=== PATIENT | male | born 1945 | race Caucasian/White ===

== ENCOUNTER 2022-04-06 11:58 | Inpatient (IN) ==
[2022-04-06] MEDS ORDERED: ALBUTEROL SULFATE 2.5 MG/3 ML NEBULIZER ONE (12:05)
[2022-04-06] MEDS ORDERED: IPRATROPIUM/ALBUTEROL 3 ML AMPUL.NEB NEB ONE (12:10)
--- NOTE | 2022-04-06 12:18 | Emergency Department Note ---
SOB HPI General Chief Complaint: Shortness of Breath/Dyspnea Stated Complaint: SOB Time Seen by Provider: 04/06/22 12:09 Mode of arrival: ambulatory History of Present Illness HPI Narrative: 77-year-old male with history of hyperlipidemia, hypertension, T2DM presents to the ER with shortness of breath and saturation 65% on room air. Patient is not officially diagnosed with COPD, but states he has a "touch" of COPD. Related Data Home Medications Medication Instructions Recorded Confirmed aspirin 81 mg tablet,delayed 81 mg PO QDAY 10/02/14 05/15/19 release multivitamin 1 tab PO QDAY 10/02/14 05/15/19 atorvastatin 40 mg tablet 40 mg PO QDAY 11/06/18 05/15/19 cholecalciferol (vitamin D3) 25 1,000 unit PO QWEEK 11/06/18 05/15/19 mcg (1,000 unit) capsule lisinopril 30 mg tablet 30 mg PO QDAY 11/06/18 05/15/19 metformin 1,000 mg tablet,extended 1,000 mg PO BID 05/15/19 05/15/19 release 24hr Previous Rx's Medication Instructions Recorded atenolol 50 mg tablet 75 mg PO QDAY 90 days #135 tabs 11/02/16 glipizide 2.5 mg tablet, extended 2.5 mg PO BID #180 tabs 03/07/17 release 24 hr Allergies Allergy/AdvReac Type Severity Reaction Status Date / Time Iodinated Contrast Media Allergy Severe Unknown Verified 05/15/19 09:14 [Iodinated Contrast Media - IV Dye] Review of Systems ROS ROS Narrative: Narrative: PFSH Narrative Patient History Narrative: Narrative: Medical/Surgical/Family History All Active Problems (Updated 04/06/22 @ 13:01 by Marie Hagen PA-C) Community acquired pneumonia (Acute) Hemorrhagic stroke (Acute) Hypertensive urgency (Acute) Hyperparathyroidism due to renal insufficiency (Chronic) Hypertensive renal disease with renal failure (Chronic) History of biopsy (Acute) Impaired renal function (Acute) Secondary hyperparathyroidism of renal origin (Chronic) Sebaceous cyst (Acute) Renal cancer (Acute) History of renal cell carcinoma (Chronic) Pyogenic granuloma (Acute) Peripheral neuropathy (Acute) Overweight (Acute) Lung nodule (Acute) Birthmark (Acute) residential current use of aspirin (Acute) Hypertensive renal disease (Acute) Hypertension, essential (Acute) Hyperlipidemia (Acute) Encounter for therapeutic drug monitoring (Acute) DM (diabetes mellitus), type 2, uncontrolled (Acute) DM type 2 (diabetes mellitus, type 2) (Chronic) [place] (Acute) Chronic kidney disease (CKD), stage III (moderate) (Chronic) Chest pain (Acute) Medical History (Updated 04/06/22 @ 13:01 by Marie Hagen PA-C) Birthmark Nevi, unspecified Chest pain Chronic kidney disease (CKD), stage III (moderate) [place] DM (diabetes mellitus), type 2, uncontrolled 01/14/2013 DM type 2 (diabetes mellitus, type 2) no recent A1C as he has not followed with his PCP Advised to keep regular follow up to ensure adequate control of DM will start him on glipzide 2.5 xl educated the need to check blood glucose, if more than 130 call, will increase the glipizide dose Encounter for therapeutic drug monitoring Encounter for other and unspecified procedures and aftercare; encounter for therapeutic drug monitoring History of renal cell carcinoma 01/14/2013 Hyperlipidemia Hyperparathyroidism due to renal insufficiency Hypertension, essential Hypertensive renal disease BP near goal, states home BP are good ct lisinopril start exercising again will follow Hypertensive renal disease with renal failure Impaired renal function Unspec. D/O results; impaired renal funct. residential current use of aspirin Lung nodule Overweight Peripheral neuropathy Pyogenic granuloma Renal cancer Renal malignancy surveillance renal US at next visit UA with no hematuria Sebaceous cyst Secondary hyperparathyroidism of renal origin PTH at 71, Vitamin D 50 at goal calcium and phos are at goal as well pt has stopped taking calcitriol or OTC vitamin D Will monitor for now Surgical History (Updated 05/15/19 @ 10:13 by Annie Aguirre MD) H/O left nephrectomy History of biopsy 06/20/2011 - Skin biopsy. Skin, right and mid-upper back - epidermal inclusion cyst Family History Grandmother Type 2 diabetes mellitus Maternal Unknown Malignant neoplasm Social History Alcohol Intake Frequency: a few times a month Exam Narrative Narrative: Narrative: Course Course Course Narrative: 77-year-old male with history of T2DM, hypertension, hyperlipidemia presents with URI with acute hypoxic respiratory failure and saturation 65% on room air. Patient states that he started feeling exertional shortness of breath last week. He is also felt little rundown. No other significant symptoms. He does use albuterol inhaler, but is not officially diagnosed with COPD. Denies history of CAD. Denies chest pain. Reevaluation(s) Reevaluation #1: Obtain basic labs, chest x-ray Reevaluation #2: VBG with a lactic acid of 3 and a pH of 7.31 Creatinine 1.6 which is baseline Chest x-ray shows bilateral lower lobe infiltrates, right greater than left Vital Signs Vital signs: Vital Signs Pulse Rate 79 04/06/22 12:00 Respiratory Rate 26 H 04/06/22 12:00 Pulse Oximetry (%) 65 L 04/06/22 12:00 Oxygen Delivery Method 04/06/22 12:00 Pulse Rate 63 04/06/22 14:16 Respiratory Rate 19 04/06/22 14:16 Blood Pressure 141/79 04/06/22 14:16 Pulse Oximetry (%) 92 04/06/22 14:16 Oxygen Delivery Method 04/06/22 14:16 Oxygen Flow Rate (L/min) 8 04/06/22 14:16 MDM MDM Narrative Medical decision making narrative: Community-acquired pneumonia Hypoxic respiratory failure Patient will need admission. I reached out to the hospitalist and the patient has been accepted. Lab Data Result diagrams: 04/06/22 12:11 Labs: Lab Results 04/06/22 04/06/22 04/06/22 Range/Units 12:11 12:17 12:18 WBC 7.9 (4.5-11.0) K/mcL RBC 4.52 L (4.63-6.08) M/mcL Hgb 13.3 L (13.7-17.5) g/dL Hct 43.1 (40.1-51.0) % POC Hct 44.0 (41-55) MCV 95.4 (80.0-100.0) fL MCH 29.4 (26.0-34.0) pg MCHC 30.9 L (31.0-36.0) g/dL RDW 15.4 H (11.5-14.5) % Plt Count 230 (140-440) K/mcL MPV 11.3 (8.8-12.5) fL Immature Gran % (Auto) 0.4 (0.0-0.5) % Neut % (Auto) 74.8 (38.0-78.0) % Lymph % (Auto) 16.7 (15.5-49.0) % [place] % (Auto) 6.2 (1.0-12.0) % Eos % (Auto) 1.4 (0.0-7.0) % Baso % (Auto) 0.5 (0.0-2.0) % Lymph # (Auto) 1.32 L (1.50-4.80) K/mcL [place] # (Auto) 0.49 (0.10-0.90) K/mcL Eos # (Auto) 0.11 (0.00-0.70) K/mcL Baso # (Auto) 0.04 (0.00-0.30) K/mcL Immature Gran # 0.03 (0.00-0.05) K/mcl Absolute Neutrophils 5.92 (1.80-8.00) K/mcL POC VBG pH 7.31 L (7.32-7.42) POC VBG pCO2 at Temp 38.6 L (41-51) POC VBG pO2 31 (25-40) POC VBG HCO3 19.6 L (24-28) POC VBG Total CO2 21.0 L (25-29) POC Venous O2 Sat 54.0 (40-70) POC VBG Base Excess -7.0 L (-2-2) VBG Lactic Acid 3.0 H (0.5-2) POC Sodium 142 (133-145) POC Potassium 4.5 (3.3-5.1) POC Chloride 111 H (96-108) POC Total CO2 21.0 L (22-30) POC BUN 26 H (6-20) POC Creatinine 1.6 H (0.6-1.2) POC Glucose 214 H (70-105) POC WB Ioniz Calcium 1.22 (1.16-1.32) POC Troponin I (0.00-0.08) 04/06/22 Range/Units 12:21 WBC (4.5-11.0) K/mcL RBC (4.63-6.08) M/mcL Hgb (13.7-17.5) g/dL Hct (40.1-51.0) % POC Hct (41-55) MCV (80.0-100.0) fL MCH (26.0-34.0) pg MCHC (31.0-36.0) g/dL RDW (11.5-14.5) % Plt Count (140-440) K/mcL MPV (8.8-12.5) fL Immature Gran % (Auto) (0.0-0.5) % Neut % (Auto) (38.0-78.0) % Lymph % (Auto) (15.5-49.0) % [place] % (Auto) (1.0-12.0) % Eos % (Auto) (0.0-7.0) % Baso % (Auto) (0.0-2.0) % Lymph # (Auto) (1.50-4.80) K/mcL [place] # (Auto) (0.10-0.90) K/mcL Eos # (Auto) (0.00-0.70) K/mcL Baso # (Auto) (0.00-0.30) K/mcL Immature Gran # (0.00-0.05) K/mcl Absolute Neutrophils (1.80-8.00) K/mcL POC VBG pH (7.32-7.42) POC VBG pCO2 at Temp (41-51) POC VBG pO2 (25-40) POC VBG HCO3 (24-28) POC VBG Total CO2 (25-29) POC Venous O2 Sat (40-70) POC VBG Base Excess (-2-2) VBG Lactic Acid (0.5-2) POC Sodium (133-145) POC Potassium (3.3-5.1) POC Chloride (96-108) POC Total CO2 (22-30) POC BUN (6-20) POC Creatinine (0.6-1.2) POC Glucose (70-105) POC WB Ioniz Calcium (1.16-1.32) POC Troponin I < 0.02 (0.00-0.08) ED POC Tests ED POC Tests: SHARIFA - Influenza A Negative SHARIFA - Influenza B Negative SHARIFA - SARS Antigen Negative Discharge Plan Patient/Caregiver Discharge Instructions Pt seen by GROUTMAN/PA only: Yes Clinical Impression: Community acquired pneumonia Patient Disposition: Xfer As Inpt ([facility]) Follow up with: Deni,Rachelle L, BOWL ATTENDANT [Primary Care Provider] - Prescriptions: No Action atenolol 50 mg tablet 75 mg PO QDAY 90 Days Qty: 135 1RF glipizide 2.5 mg tablet extended release 24hr 2.5 mg PO BID Qty: 180 0RF aspirin 81 mg tablet,delayed release (DR/EC) 81 mg PO QDAY multivitamin 1 tab PO QDAY atorvastatin 40 mg tablet 40 mg PO QDAY cholecalciferol (vitamin D3) 1,000 unit capsule 1,000 unit PO QWEEK lisinopril 30 mg tablet 30 mg PO QDAY metformin 1,000 mg tablet extended release 24hr 1,000 mg PO BID
[2022-04-06] MEDS ORDERED: cefTRIAXone 1 GM VIAL IV ONE (12:20)
[2022-04-06 12:21] LABS: POC Calcium, Ionized 1.22 (1.16-1.32); POC Creatinine 1.6 (0.6-1.2); POC Potassium 4.5 (3.3-5.1)
[2022-04-06] MEDS ORDERED: AZITHROMYCIN 250 MG TABLET PO ONE (12:32)
[2022-04-06 13:21] LABS: Basophils # (Auto) 0.04 K/mcL (0.00-0.30); Basophils % (Auto) 0.5 % (0.0-2.0); Eosinophils # (Auto) 0.11 K/mcL (0.00-0.70); Eosinophils % (Auto) 1.4 % (0.0-7.0); Hematocrit 43.1 % (40.1-51.0); Hemoglobin 13.3 g/dL (13.7-17.5); Lymphocytes # (Auto) 1.32 K/mcL (1.50-4.80); Lymphocytes % (Auto) 16.7 % (15.5-49.0); Mean Cell Volume 95.4 fL (80.0-100.0); Mean Corpuscular HGB Conc 30.9 g/dL (31.0-36.0); Mean Platelet Volume 11.3 fL (8.8-12.5); Monocytes # (Auto) 0.49 K/mcL (0.10-0.90); Monocytes % (Auto) 6.2 % (1.0-12.0); Neutrophils % (Auto) 74.8 % (38.0-78.0); Platelet Count 230 K/mcL (140-440); RBC 4.52 M/mcL (4.63-6.08); Red Cell Distribution Width 15.4 % (11.5-14.5); WBC 7.9 K/mcL (4.5-11.0)
--- NOTE | 2022-04-06 13:43 | XRay Report ---
CLINICAL INFORMATION: Hypoxia COMPARISON: 09/15/2011 TECHNIQUE: Portable FINDINGS: The heart size, mediastinum and pulmonary vessels are unremarkable. Moderate patchy bibasilar infiltrates and small effusions appreciated.. There are no effusions. The bones and soft tissues are within normal limits. IMPRESSION: Moderate patchy bibasilar infiltrates and small effusions. Interpreted and Authenticated by: Ton Hardwick 04/06/22
--- NOTE | 2022-04-06 14:41 | Internal Med History&Physical ---
HPI History of Present Illness Patient information: Note initiated : 04/06/22 at 2:32 pm Service Date, if different from initiated Date: [] Patient: Franki Baxter a 77 y/o M admitted on for Shortness of breath. Chief Complaint: [] History of present illness: Mr. Baxter is a 77 year old M Presents the ED with increasing shortness of breath. Patient was found to have oxygen saturation of 65% on room air when he arrived. Patient said his primary doctor says he has a touch of COVID. Patient has a history of smoking but quit in the mid 90s. Patient states his shortness of breath for a long time especially with exertion but usually when he sits down he gets better. However the past week he said his dyspnea on exertion has been increasing and not improving quickly with rest especially today he can hardly walk across to his living room. Patient sleeps in a bed as opposed to recliner and does not report any increased shortness of breath or sleeping. Denies any weight gain or edema. Denies any chest pain. Denies any body aches or flulike symptoms. Patient denies any cough. Denies any fevers says he has had some chills in the morning but unimpressive. He does say his brother has been sick recently, the only sick contact has had. Patient has not not had the flu vaccine and does not sound like he is having COVID booster. He did have COVID done in [place] last year and was in the hospital for 4 days. In the ED he was placed on oxygen mask at 8 L. Renal function appears to be near baseline. Does have a lactate of 3 and a pH of 7.31. Chest x-ray with bilateral pneumonia. Rapid flu and COVID negative but the Cepheid test for COVID is pending. Review of Systems: Pertinent positives as above. Denies headache/fever//nausea/vomiting/chest or abdominal pain/diarrhea. Remaining 10 point review of system reviewed negative PFSH PFSH All Active Problems (Updated 04/06/22 @ 13:01 by Marie Hagen PA-C) Community acquired pneumonia (Acute) Hemorrhagic stroke (Acute) Hypertensive urgency (Acute) Hyperparathyroidism due to renal insufficiency (Chronic) Hypertensive renal disease with renal failure (Chronic) History of biopsy (Acute) Impaired renal function (Acute) Secondary hyperparathyroidism of renal origin (Chronic) Sebaceous cyst (Acute) Renal cancer (Acute) History of renal cell carcinoma (Chronic) Pyogenic granuloma (Acute) Peripheral neuropathy (Acute) Overweight (Acute) Lung nodule (Acute) Birthmark (Acute) jail current use of aspirin (Acute) Hypertensive renal disease (Acute) Hypertension, essential (Acute) Hyperlipidemia (Acute) Encounter for therapeutic drug monitoring (Acute) DM (diabetes mellitus), type 2, uncontrolled (Acute) DM type 2 (diabetes mellitus, type 2) (Chronic) [place] (Acute) Chronic kidney disease (CKD), stage III (moderate) (Chronic) Chest pain (Acute) Medical History (Updated 04/06/22 @ 13:01 by Marie Hagen PA-C) Birthmark Nevi, unspecified Chest pain Chronic kidney disease (CKD), stage III (moderate) [place] DM (diabetes mellitus), type 2, uncontrolled 01/14/2013 DM type 2 (diabetes mellitus, type 2) no recent A1C as he has not followed with his PCP Advised to keep regular follow up to ensure adequate control of DM will start him on glipzide 2.5 xl educated the need to check blood glucose, if more than 130 call, will increase the glipizide dose Encounter for therapeutic drug monitoring Encounter for other and unspecified procedures and aftercare; encounter for therapeutic drug monitoring History of renal cell carcinoma 01/14/2013 Hyperlipidemia Hyperparathyroidism due to renal insufficiency Hypertension, essential Hypertensive renal disease BP near goal, states home BP are good ct lisinopril start exercising again will follow Hypertensive renal disease with renal failure Impaired renal function Unspec. D/O results; impaired renal funct. watermaster current use of aspirin Lung nodule Overweight Peripheral neuropathy Pyogenic granuloma Renal cancer Renal malignancy surveillance renal US at next visit UA with no hematuria Sebaceous cyst Secondary hyperparathyroidism of renal origin PTH at 71, Vitamin D 50 at goal calcium and phos are at goal as well pt has stopped taking calcitriol or OTC vitamin D Will monitor for now Surgical History (Updated 05/15/19 @ 10:13 by Annie Aguirre MD) H/O left nephrectomy History of biopsy 06/20/2011 - Skin biopsy. Skin, right and mid-upper back - epidermal inclusion cyst Family History Grandmother Type 2 diabetes mellitus Maternal Unknown Malignant neoplasm Social History (Updated 05/15/19 @ 10:13 by Annie Aguirre MD) alcohol intake frequency: a few times a month MEDS/ALLERGIES Home Medications and Allergies Home Medications Medication Instructions Recorded Confirmed Type aspirin 81 mg tablet,delayed 81 mg PO QDAY 10/02/14 04/06/22 History release multivitamin 1 tab PO QDAY 10/02/14 04/06/22 History atorvastatin 40 mg tablet 40 mg PO QDAY 11/06/18 04/06/22 History cholecalciferol (vitamin D3) 25 5,000 unit PO QWEEK 11/06/18 04/06/22 History mcg (1,000 unit) capsule metformin 1,000 mg tablet,extended 1,000 mg PO BID 05/15/19 04/06/22 History release 24hr albuterol sulfate 90 mcg/actuation 2 puff inhalation Q4HP PRN dyspnea 04/06/22 04/06/22 History aerosol inhaler amlodipine 5 mg tablet 1 tab PO QDAY 04/06/22 04/06/22 History atenolol 50 mg tablet 100 mg PO QDAY 04/06/22 04/06/22 History glipizide 10 mg tablet, extended 2 tab PO QDAY 04/06/22 04/06/22 History release 24 hr lisinopril 40 mg tablet 1 tab PO QDAY 04/06/22 04/06/22 History omeprazole 20 mg capsule,delayed 20 mg PO QDAY 04/06/22 04/06/22 History release pioglitazone 30 mg tablet 1 tab PO QAM 04/06/22 04/06/22 History Allergies Allergy/AdvReac Type Severity Reaction Status Date / Time Iodinated Contrast Media Allergy Severe Unknown Verified 05/15/19 09:14 [Iodinated Contrast Media - IV Dye] EXAM Constitutional Vitals: Pulse Resp BP Pulse Ox O2 Del Method O2 Flow Rate 62 14 155/93 92 8 04/06/22 14:31 04/06/22 14:31 04/06/22 14:31 04/06/22 14:31 04/06/22 14:16 04/06/22 14:16 Exam: General: Alert, Awake, No acute Distress, obese Eyes/N/T: EOMI, PERRL, Head/Neck: neck supple, normocephalic atraumatic CV: RRR, No murmurs, normal s1/s2 Pulm: Diminished at bases b/l, no wheezing/rhonchi/rales Abd: soft, nontender, +BS x4 Ext: no clubbing/cyanosis/edema Neuro: Alert, no focal deficits, moves all extremities, CN 2-12 grossly intact, symmetrical strength b/l upper/lower, sensations intact b/l upper/lower Skin: warm/dry DATA Data Completed and Pending Labs: Labs from last 24 hours 04/06/22 04/06/22 04/06/22 14:22 14:22 12:21 WBC RBC Hgb Hct POC Hct MCV MCH MCHC RDW Plt Count MPV Immature Gran % (Auto) Neut % (Auto) Lymph % (Auto) [place] % (Auto) Eos % (Auto) Baso % (Auto) Lymph # (Auto) [place] # (Auto) Eos # (Auto) Baso # (Auto) Immature Gran # Absolute Neutrophils POC VBG pH POC VBG pCO2 at Temp POC VBG pO2 POC VBG HCO3 POC VBG Total CO2 POC Venous O2 Sat POC VBG Base Excess VBG Lactic Acid POC Sodium POC Potassium POC Chloride POC Total CO2 POC BUN POC Creatinine POC Glucose POC WB Ioniz Calcium C-Reactive Protein Pending NT-Pro-B Natriuret Pep Pending Procalcitonin Pending POC Troponin I < 0.02 04/06/22 04/06/22 04/06/22 12:18 12:17 12:11 WBC 7.9 RBC 4.52 L Hgb 13.3 L Hct 43.1 POC Hct 44.0 MCV 95.4 MCH 29.4 MCHC 30.9 L RDW 15.4 H Plt Count 230 MPV 11.3 Immature Gran % (Auto) 0.4 Neut % (Auto) 74.8 Lymph % (Auto) 16.7 [place] % (Auto) 6.2 Eos % (Auto) 1.4 Baso % (Auto) 0.5 Lymph # (Auto) 1.32 L [place] # (Auto) 0.49 Eos # (Auto) 0.11 Baso # (Auto) 0.04 Immature Gran # 0.03 Absolute Neutrophils 5.92 POC VBG pH 7.31 L POC VBG pCO2 at Temp 38.6 L POC VBG pO2 31 POC VBG HCO3 19.6 L POC VBG Total CO2 21.0 L POC Venous O2 Sat 54.0 POC VBG Base Excess -7.0 L VBG Lactic Acid 3.0 H POC Sodium 142 POC Potassium 4.5 POC Chloride 111 H POC Total CO2 21.0 L POC BUN 26 H POC Creatinine 1.6 H POC Glucose 214 H POC WB Ioniz Calcium 1.22 C-Reactive Protein NT-Pro-B Natriuret Pep Procalcitonin POC Troponin I A/P Narrative A/P Narrative: A: *Acute hypoxic respiratory failure: *Pneumonia w/ARDS vs cardiac r/o: -Pt had covid while in [place] last year, hospitalized for 4-days *Lactic acidosis: *Probable COPD based on imaging and smoking history *DM w/neuropathy: -A1c 9.1 *CKD IIIb: *HTN/HLD: *GERD: *h/o hemoarrhagic CVA (2019): *Obesity: BMI 35 P: -O2 supp, wean as able -ABG -IV abx, pending BC/SC -pending quad/rvp -check crp/pct/bnp, if elevated then echo -f/u lactate -IS/Acapella, prn nebs, RT -monitor renal fxn, i/o, trend cbc/cmp -Continue home asa/statin -cont home ccb/bb/acei -ssi, hold metformin for now -Home medication reconciliation -PT/OT -CM for placement needs -ppx: Lovenox / home ppi Time Spent With Patient Time: Total time spent is greater than 50% in coordination of care (as documented) at patient's floor/unit and/or counseling patient: Total time spent with greater than 50% in coordination of care (as documented) at patient's floor/unit and/or counseling patient:: Greater than 70 minutes
[2022-04-06 15:43] LABS: Albumin 3.9 gm/dL (3.2-5.2); Blood Urea Nitrogen 24 mg/dL (8-23); Calcium 9.2 mg/dL (8.6-10.4); Carbon Dioxide 18 mmol/L (22-30); Chloride 106 mmol/L (96-108); Glomerular Filtration Rate 53; Glucose 173 mg/dL (70-105); Phosphorous 2.9 mg/dL (2.5-4.5)
[2022-04-06 15:52] LABS: ALT/SGPT 18 U/L (<40); AST/SGOT 15 U/L (<40); Alkaline Phosphatase 74 U/L (39-117); Bilirubin,Direct < 0.2 mg/dL (0-0.3); Bilirubin,Total 0.3 mg/dL (0.1-1.0); Globulin 3.3 gm/dL (2.2-3.7)
[2022-04-06] MEDS ORDERED: ACETAMINOPHEN 325 MG TABLET PO PRN (17:23)
[2022-04-06] MEDS ORDERED: AZITHROMYCIN 500 MG in DEXTROSE 5% IN WATER 250 ML IV SCH (17:23)
[2022-04-06] MEDS ORDERED: POLYETHYLENE GLYCOL 3350 17 GM PACKET PO PRN (17:23)
[2022-04-06] MEDS ORDERED: POTASSIUM CHLORIDE 40 MEQ in DEXTROSE 5% IN WATER 500 ML IV PRN (17:23)
[2022-04-06] MEDS ORDERED: MAGNESIUM SULFATE 2 GM/50 ML BAG IV PRN (17:23)
[2022-04-06] MEDS ORDERED: IPRATROPIUM/ALBUTEROL 3 ML AMPUL.NEB NEB PRN (17:23)
[2022-04-06] MEDS ORDERED: ONDANSETRON 4 MG/2 ML VIAL IV PRN (17:23)
[2022-04-06] MEDS ORDERED: POTASSIUM CHLORIDE 20 MEQ TABLET PO PRN ×2 (17:23)
[2022-04-06] MEDS ORDERED: SENNOSIDES 1 TABLET PO PRN (17:23)
[2022-04-06] MEDS ORDERED: cefTRIAXone 1 GM in DEXTROSE 5% IN WATER 50 ML IV SCH (17:23)
[2022-04-06] MEDS ORDERED: FUROSEMIDE 40 MG/4 ML VIAL IV SCH (17:50)
[2022-04-06] MEDS: 0.9 % SODIUM CHLORIDE 10 ML SYRINGE IV SCH ×2 (19:05→21:36)
--- NOTE | 2022-04-07 00:53 | Internal Med Progress Note ---
SUBJECTIVE Subjective Patient information: Note initiated : 04/07/22 at 12:48 am Service Date, if different from initiated Date: [] Patient: Franki Baxter 77 y/o M admitted on 04/06/22 for Shortness of breath. Chief Complaint: [] Interval history: History of present illness: Mr. Baxter is a 77 year old M Presents the ED with increasing shortness of breath. Patient was found to have oxygen saturation of 65% on room air when he arrived. Patient said his primary doctor says he has a touch of COVID. Patient has a history of smoking but quit in the mid . Patient states his shortness of breath for a long time especially with exertion but usually when he sits down he gets better. However the past week he said his dyspnea on exertion has been increasing and not improving quickly with rest especially today he can hardly walk across to his living room. Patient sleeps in a bed as opposed to recliner and does not report any increased shortness of breath or sleeping. Denies any weight gain or edema. Denies any chest pain. Denies any body aches or flulike symptoms. Patient denies any cough. Denies any fevers says he has had some chills in the morning but unimpressive. He does say his brother has been sick recently, the only sick contact has had. Patient has not not had the flu vaccine and does not sound like he is having COVID booster. He did have COVID done in [place] last year and was in the hospital for 4 days. In the ED he was placed on oxygen mask at 8 L. Renal function appears to be near baseline. Does have a lactate of 3 and a pH of 7.31. Chest x-ray with bilateral pneumonia. Rapid flu and COVID negative but the Cepheid test for COVID is pending. 04/07 Was on Vapotherm overnight. Now on 6 L high flow nasal cannula. Patient has a mild cough today, productive. Says shortness of breath at present is improving. Echocardiogram pending. Renal function no change. Review of Systems: denies headache/fever/chills/nausea/vomiting/chest or abdominal pain/diarrhea. Otherwise see above. Constitutional Vitals: Vital Signs Temp Pulse Resp BP Pulse Ox O2 Del Method O2 Flow Rate 98.1 F 61 20 102/49 98 35 04/07/22 00:02 04/07/22 00:02 04/07/22 00:02 04/07/22 00:02 04/07/22 00:02 04/07/22 00:02 04/07/22 00:02 Period Temp Pulse Resp BP Sys/Cedillo Pulse Ox O2 Del Method O2 Flow Rate Last 24 Hr 97.5 F-98.1 F 61-79 9-26 102-191/49-107 65-99 Heated High Flow Nasal Ca-Room Air 8-35 Intake and Output 04/06/22 04/06/22 04/07/22 11:59 19:59 03:59 Intake Total 480 Output Total 825 Balance -345 Weight 112.264 kg 113.035 kg Patient Weight 04/07/22 03:59 Weight 113.035 kg Intake & Output: Intake & Output 04/06/22 04/06/22 04/07/22 11:59 19:59 03:59 Intake Total 480 Output Total 825 Balance -345 Weight 112.264 kg 113.035 kg Intake: Oral 480 Output: Void Amount 825 Other: Urine Appearance Clear Urine Color Pale Exam: General: Alert, Awake, No acute Distress, obese Eyes/N/T: EOMI, Head/Neck: neck supple, CV: RRR, No murmurs, Pulm: Diminished BS b/l, mild rales b/l, no wheezing Abd: soft, nontender, +BS x4 Ext: no clubbing/cyanosis, trace b/l LE edema Neuro: Alert, no focal deficits, moves all extremities, Skin: warm/dry OBJ DATA Labs CBC & Chem 7: 04/07/22 05:55 04/07/22 05:55 Labs: Abnormal Lab Results 04/06/22 04/06/22 04/06/22 15:13 14:22 14:09 RBC Hgb MCHC RDW Lymph # (Auto) POC pH 7.32 L POC pO2 63 L POC HCO3 20.5 L POC ABG Base Excess -6.0 L POC VBG pH POC VBG pCO2 at Temp POC VBG HCO3 POC VBG Total CO2 POC VBG Base Excess VBG Lactic Acid Hgb O2 Saturation 90.0 L POC Chloride Carbon Dioxide 18 L POC Total CO2 22.0 L POC BUN BUN 24 H Creatinine 1.3 H POC Creatinine Glucose 173 H POC Glucose NT-Pro-B Natriuret Pep 1224.0 H 04/06/22 04/06/22 04/06/22 12:18 12:17 12:11 RBC 4.52 L Hgb 13.3 L MCHC 30.9 L RDW 15.4 H Lymph # (Auto) 1.32 L POC pH POC pO2 POC HCO3 POC ABG Base Excess POC VBG pH 7.31 L POC VBG pCO2 at Temp 38.6 L POC VBG HCO3 19.6 L POC VBG Total CO2 21.0 L POC VBG Base Excess -7.0 L VBG Lactic Acid 3.0 H Hgb O2 Saturation POC Chloride 111 H Carbon Dioxide POC Total CO2 21.0 L POC BUN 26 H BUN Creatinine POC Creatinine 1.6 H Glucose POC Glucose 214 H NT-Pro-B Natriuret Pep Meds: Medications Acetaminophen (Acetaminophen 325 Mg Tablet) 650 mg PO Q6HP PRN; Protocol PRN Reason: Per Pain Protocol/Fever > 101 Albuterol/Ipratropium (Ipratropium/Albuterol 3 Ml Ampul.Neb) 3 ml NEB Q4HP PRN PRN Reason: Shortness Of Breath Amlodipine Besylate (Amlodipine 5 Mg Tablet) 5 mg PO QDAY [facility] Aspirin (Aspirin 81 Mg Tab.Chew) 81 mg PO QDAY [facility] Atenolol (Atenolol 50 Mg Tablet) 100 mg PO QDAY [facility] Atorvastatin Calcium (Atorvastatin 40 Mg Tablet) 40 mg PO QDAY [facility] Ceftriaxone Sodium (Ceftriaxone 1 Gm Vial) 1 gm IV Q24H [facility] Enoxaparin Sodium (Enoxaparin 40 Mg/0.4 Ml Syringe) 40 mg SQ DAILY [facility] Potassium Chloride 40 meq/ (Dextrose) 520 mls @ 130 mls/hr IV UD PRN PRN Reason: Potassium < 3 Magnesium Sulfate (Magnesium Sulfate) 2 gm in 50 mls @ 50 mls/hr IV UD PRN PRN Reason: Magnesium </= 1.6 Azithromycin 500 mg/ Dextrose 250 mls @ 250 mls/hr IV Q24H [facility]; Protocol Stop: 04/08/22 09:59 Lisinopril (Lisinopril 20 Mg Tablet) 40 mg PO QDAY [facility] Omeprazole (Omeprazole 20 Mg Capsule) 20 mg PO QAMAC [facility] Ondansetron HCl (Ondansetron 4 Mg/2 Ml Vial) 4 mg IV Q4HP PRN PRN Reason: Nausea And Vomiting Polyethylene Glycol (Polyethylene Glycol 3350 17 Gm Packet) 17 gm PO DAILYP PRN PRN Reason: Constipation Potassium Chloride (Potassium Chloride 20 Meq Tablet) 40 meq PO UD PRN PRN Reason: Potssium is 3-3.5 Potassium Chloride (Potassium Chloride 20 Meq Tablet) 40 meq PO UD PRN PRN Reason: Potassium < 3 Senna (Sennosides 1 Tablet) 2 tab PO DAILYP PRN PRN Reason: Constipation Sodium Chloride (0.9 % Sodium Chloride 10 Ml Syringe) 10 ml IV Q8 [facility] Last Admin: 04/06/22 21:36 Dose: Not Given A/P Narrative A/P Narrative: A: *Acute hypoxic respiratory failure: 2/2 -was on vapotherm o/n now on 6L HFNC *Pneumonia w/ARDS +/- Cardiac component: -Pt had covid while in [place] last year, hospitalized for 4-days -pct/crp low, afebrile. 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 *CKD IIIb: *HTN/HLD: *GERD: *h/o hemoarrhagic CVA (2019): *Obesity: BMI 35 P: -O2 supp, wean as able -IV abx, pending BC/SC -echo pending -trial IV lasix -IS/Acapella, prn nebs, RT -monitor renal fxn, i/o, trend cbc/cmp -Continue home asa/statin -cont home ccb/bb/acei -ssi, hold metformin for now -PT/OT -CM for placement needs -ppx: Lovenox / home ppi Time Spent With Patient Time: Total time spent is greater than 50% in coordination of care (as documented) at patient's floor/unit and/or counseling patient: Total time spent with greater than 50% in coordination of care (as documented) at patient's floor/unit and/or counseling patient:: 35 - 50 minutes QUALITY VTE Deep Vein Thrombosis/Pulmonary Embolism Present on Admission: No
[2022-04-07] MEDS: 0.9 % SODIUM CHLORIDE 10 ML SYRINGE IV SCH ×3 (05:43→20:05)
[2022-04-07 06:52] LABS: Basophils # (Auto) 0.04 K/mcL (0.00-0.30); Basophils % (Auto) 0.6 % (0.0-2.0); Eosinophils # (Auto) 0.18 K/mcL (0.00-0.70); Eosinophils % (Auto) 2.8 % (0.0-7.0); Hematocrit 40.1 % (40.1-51.0); Hemoglobin 12.2 g/dL (13.7-17.5); Lymphocytes # (Auto) 1.49 K/mcL (1.50-4.80); Lymphocytes % (Auto) 22.8 % (15.5-49.0); Mean Cell Volume 96.4 fL (80.0-100.0); Mean Corpuscular HGB Conc 30.4 g/dL (31.0-36.0); Mean Platelet Volume 11.1 fL (8.8-12.5); Monocytes # (Auto) 0.58 K/mcL (0.10-0.90); Monocytes % (Auto) 8.9 % (1.0-12.0); Neutrophils % (Auto) 64.6 % (38.0-78.0); Platelet Count 180 K/mcL (140-440); RBC 4.16 M/mcL (4.63-6.08); Red Cell Distribution Width 15.2 % (11.5-14.5); WBC 6.5 K/mcL (4.5-11.0)
[2022-04-07 07:13] LABS: ALT/SGPT 15 U/L (<40); AST/SGOT 15 U/L (<40); Albumin 3.6 gm/dL (3.2-5.2); Albumin/Globulin Ratio 1.1 (1.0-2.3); Alkaline Phosphatase 68 U/L (39-117); Bilirubin,Direct < 0.2 mg/dL (0-0.3); Bilirubin,Total 0.3 mg/dL (0.1-1.0); Blood Urea Nitrogen 25 mg/dL (8-23); Calcium 9.1 mg/dL (8.6-10.4); Carbon Dioxide 24 mmol/L (22-30); Chloride 107 mmol/L (96-108); Globulin 3.2 gm/dL (2.2-3.7); Glomerular Filtration Rate 48; Glucose 145 mg/dL (70-105); Lactate Dehydrogenase 244 U/L (135-225); Phosphorous 3.8 mg/dL (2.5-4.5); Triglycerides 175 mg/dL (<150); Uric Acid 6.2 mg/dL (2.5-8.0)
[2022-04-07] MEDS: OMEPRAZOLE 20 MG CAPSULE PO SCH (07:23)
[2022-04-07] MEDS: ATORVASTATIN 40 MG TABLET PO SCH (08:37)
[2022-04-07] MEDS: ASPIRIN 81 MG TAB.CHEW PO SCH (08:37)
[2022-04-07] MEDS: ENOXAPARIN 40 MG/0.4 ML SYRINGE SQ SCH (08:37)
[2022-04-07] MEDS: ATENOLOL 50 MG TABLET PO SCH (08:38)
[2022-04-07] MEDS: cefTRIAXone 1 GM VIAL IV SCH (08:38)
[2022-04-07] MEDS: amLODIPine 5 MG TABLET PO SCH (08:38)
[2022-04-07] MEDS: LISINOPRIL 20 MG TABLET PO SCH (08:38)
[2022-04-07] MEDS ORDERED: HYDROCHLOROTHIAZIDE 12.5 MG CAPSULE PO ONE (08:43)
[2022-04-07] MEDS ORDERED: FUROSEMIDE 40 MG/4 ML VIAL IV ONE (08:43)
[2022-04-07] MEDS ORDERED: DEXTROSE 50% 50 ML VIAL IV PRN (08:58)
[2022-04-07] MEDS ORDERED: DEXTROSE 31 GM ORAL.SUSP PO PRN (08:58)
[2022-04-07] MEDS ORDERED: AZITHROMYCIN 250 MG TABLET PO SCH (09:00)
[2022-04-07] MEDS: AZITHROMYCIN 500 MG in DEXTROSE 5% IN WATER 250 ML IV SCH (09:19)
[2022-04-07] MEDS: INSULIN LISPRO 1 UNIT/0.01 ML UNIT SQ SCH ×3 (11:38→20:04)
[2022-04-08] MEDS: 0.9 % SODIUM CHLORIDE 10 ML SYRINGE IV SCH ×3 (05:46→20:49)
[2022-04-08 07:18] LABS: Blood Urea Nitrogen 29 mg/dL (8-23); Calcium 9.8 mg/dL (8.6-10.4); Carbon Dioxide 25 mmol/L (22-30); Chloride 104 mmol/L (96-108); Glomerular Filtration Rate 53; Glucose 153 mg/dL (70-105)
[2022-04-08] MEDS: INSULIN LISPRO 1 UNIT/0.01 ML UNIT SQ SCH ×5 (08:19→22:47)
[2022-04-08] MEDS: ASPIRIN 81 MG TAB.CHEW PO SCH (08:19)
[2022-04-08] MEDS: LISINOPRIL 20 MG TABLET PO SCH (08:19)
[2022-04-08] MEDS: amLODIPine 5 MG TABLET PO SCH (08:19)
[2022-04-08] MEDS: OMEPRAZOLE 20 MG CAPSULE PO SCH (08:20)
[2022-04-08] MEDS: ATENOLOL 50 MG TABLET PO SCH ×2 (08:20→09:34)
[2022-04-08] MEDS: ATORVASTATIN 40 MG TABLET PO SCH (08:20)
--- NOTE | 2022-04-08 08:48 | Internal Med Progress Note ---
SUBJECTIVE Subjective Patient information: Note initiated : 04/08/22 at 8:38 am Service Date, if different from initiated Date: [] Patient: Franki Baxter 77 y/o M admitted on 04/06/22 for Shortness of breath. Chief Complaint: [] Interval history: History of present illness: Mr. Baxter is a 77 year old M Presents the ED with increasing shortness of breath. Patient was found to have oxygen saturation of 65% on room air when he arrived. Patient said his primary doctor says he has a touch of COVID. Patient has a history of smoking but quit in the mid . Patient states his shortness of breath for a long time especially with exertion but usually when he sits down he gets better. However the past week he said his dyspnea on exertion has been increasing and not improving quickly with rest especially today he can hardly walk across to his living room. Patient sleeps in a bed as opposed to recliner and does not report any increased shortness of breath or sleeping. Denies any weight gain or edema. Denies any chest pain. Denies any body aches or flulike symptoms. Patient denies any cough. Denies any fevers says he has had some chills in the morning but unimpressive. He does say his brother has been sick recently, the only sick contact has had. Patient has not not had the flu vaccine and does not sound like he is having COVID booster. He did have COVID done in [place] last year and was in the hospital for 4 days. In the ED he was placed on oxygen mask at 8 L. Renal function appears to be near baseline. Does have a lactate of 3 and a pH of 7.31. Chest x-ray with bilateral pneumonia. Rapid flu and COVID negative but the Cepheid test for COVID is pending. 04/07 Was on Vapotherm overnight. Now on 6 L high flow nasal cannula. Patient has a mild cough today, productive. Says shortness of breath at present is improving. Echocardiogram pending. Renal function no change. 04/08 Patient slept fairly well last night. Patient says he is shortness of breath is continued to improve. Is a very mild occasional cough. He is on 4 L nasal cannula although with up moving around exertion he still will desat with that. CT chest pending. Atenolol decreased for bradycardia. Review of Systems: denies headache/fever/chills/nausea/vomiting/chest or abdominal pain/diarrhea. Otherwise see above. Constitutional Vitals: Vital Signs Temp Pulse Resp BP Pulse Ox O2 Del Method O2 Flow Rate 96.8 F L 59 L 22 133/79 96 4 04/08/22 08:01 04/08/22 08:01 04/08/22 08:01 04/08/22 08:01 04/08/22 08:01 04/08/22 07:26 04/08/22 07:26 Period Temp Pulse Resp BP Sys/Cedillo Pulse Ox O2 Del Method O2 Flow Rate Last 24 Hr 96.8 F-98.4 F 50-75 10-25 97-133/46-101 87-100 High Flow Nasal Cannula-Nasal Cannula 4-6 Intake and Output 04/07/22 04/08/22 04/08/22 19:59 03:59 11:59 Intake Total 1180 Output Total 980 500 300 Balance 200 -500 -300 Weight 111.13 kg Intake & Output: Intake & Output 04/07/22 04/08/22 04/08/22 19:59 03:59 11:59 Intake Total 1180 Output Total 980 500 300 Balance 200 -500 -300 Weight 111.13 kg Intake: Oral 1180 Output: Void Amount 980 500 300 Other: Meal Dinner Percent of Meal Consumed 50% Feeding Ability Independent Urine Appearance Clear Clear Clear Urine Color Bright Yellow Bright Yellow Bright Yellow Exam: General: Alert, Awake, No acute Distress, obese Eyes/N/T: EOMI, Head/Neck: neck supple, CV: RRR, No murmurs, Pulm: mild subtle rales b/l, no wheezing Abd: soft, nontender, +BS x4 Ext: no clubbing/cyanosis, trace b/l LE edema Neuro: Alert, no focal deficits, moves all extremities, Skin: warm/dry OBJ DATA Labs CBC & Chem 7: 04/07/22 05:55 04/08/22 06:06 Labs: Abnormal Lab Results 04/08/22 04/07/22 04/07/22 06:06 05:55 05:55 RBC 4.16 L Hgb 12.2 L MCHC 30.4 L RDW 15.2 H Lymph # (Auto) 1.49 L POC pH POC pO2 POC HCO3 POC ABG Base Excess POC VBG pH POC VBG pCO2 at Temp POC VBG HCO3 POC VBG Total CO2 POC VBG Base Excess VBG Lactic Acid Hgb O2 Saturation POC Chloride Carbon Dioxide POC Total CO2 Anion Gap 7.0 L POC BUN BUN 29 H 25 H Creatinine 1.3 H 1.4 H POC Creatinine Glucose 153 H 145 H POC Glucose Lactate Dehydrogenase 244 H NT-Pro-B Natriuret Pep Triglycerides 175 H 04/06/22 04/06/22 04/06/22 15:13 14:22 14:09 RBC Hgb MCHC RDW Lymph # (Auto) POC pH 7.32 L POC pO2 63 L POC HCO3 20.5 L POC ABG Base Excess -6.0 L POC VBG pH POC VBG pCO2 at Temp POC VBG HCO3 POC VBG Total CO2 POC VBG Base Excess VBG Lactic Acid Hgb O2 Saturation 90.0 L POC Chloride Carbon Dioxide 18 L POC Total CO2 22.0 L Anion Gap POC BUN BUN 24 H Creatinine 1.3 H POC Creatinine Glucose 173 H POC Glucose Lactate Dehydrogenase NT-Pro-B Natriuret Pep 1224.0 H Triglycerides 04/06/22 04/06/22 04/06/22 12:18 12:17 12:11 RBC 4.52 L Hgb 13.3 L MCHC 30.9 L RDW 15.4 H Lymph # (Auto) 1.32 L POC pH POC pO2 POC HCO3 POC ABG Base Excess POC VBG pH 7.31 L POC VBG pCO2 at Temp 38.6 L POC VBG HCO3 19.6 L POC VBG Total CO2 21.0 L POC VBG Base Excess -7.0 L VBG Lactic Acid 3.0 H Hgb O2 Saturation POC Chloride 111 H Carbon Dioxide POC Total CO2 21.0 L Anion Gap POC BUN 26 H BUN Creatinine POC Creatinine 1.6 H Glucose POC Glucose 214 H Lactate Dehydrogenase NT-Pro-B Natriuret Pep Triglycerides Meds: Medications Acetaminophen (Acetaminophen 325 Mg Tablet) 650 mg PO Q6HP PRN; Protocol PRN Reason: Per Pain Protocol/Fever > 101 Albuterol/Ipratropium (Ipratropium/Albuterol 3 Ml Ampul.Neb) 3 ml NEB Q4HP PRN PRN Reason: Shortness Of Breath Amlodipine Besylate (Amlodipine 5 Mg Tablet) 5 mg PO QDAY [facility] Last Admin: 04/08/22 08:19 Dose: 5 mg Aspirin (Aspirin 81 Mg Tab.Chew) 81 mg PO QDAY [facility] Last Admin: 04/08/22 08:19 Dose: 81 mg Atenolol (Atenolol 50 Mg Tablet) 100 mg PO QDAY [facility] Last Admin: 04/08/22 08:20 Dose: 100 mg Atorvastatin Calcium (Atorvastatin 40 Mg Tablet) 40 mg PO QDAY [facility] Last Admin: 04/08/22 08:20 Dose: 40 mg Ceftriaxone Sodium (Ceftriaxone 1 Gm Vial) 1 gm IV Q24H [facility] Last Admin: 04/07/22 08:38 Dose: 1 gm Dextrose (Dextrose 50% 50 Ml Vial) 0 ml IV UD PRN PRN Reason: Per Sliding Scale Diagnostic Test (Pha) (Accu-Chek 1 Each Strip) 1 each FS [facility] Last Admin: 04/08/22 07:55 Dose: 1 each Enoxaparin Sodium (Enoxaparin 40 Mg/0.4 Ml Syringe) 40 mg SQ DAILY [facility] Last Admin: 04/07/22 08:37 Dose: 40 mg Glucose (Dextrose 31 Gm Oral.Susp) 15 gm PO PRN PRN PRN Reason: Hypoglycemia Potassium Chloride 40 meq/ (Dextrose) 520 mls @ 130 mls/hr IV UD PRN PRN Reason: Potassium < 3 Magnesium Sulfate (Magnesium Sulfate) 2 gm in 50 mls @ 50 mls/hr IV UD PRN PRN Reason: Magnesium </= 1.6 Azithromycin 500 mg/ Dextrose 250 mls @ 250 mls/hr IV Q24H [facility]; Protocol Stop: 04/08/22 09:59 Last Infusion: 04/07/22 10:21 Dose: Infused Insulin Human Lispro (Insulin Lispro 1 Unit/0.01 Ml Unit) 0 unit SQ [facility]; Protocol Last Admin: 04/08/22 08:19 Dose: 4 unit Lisinopril (Lisinopril 20 Mg Tablet) 40 mg PO QDAY [facility] Last Admin: 04/08/22 08:19 Dose: 40 mg Omeprazole (Omeprazole 20 Mg Capsule) 20 mg PO QAMAC [facility] Last Admin: 04/08/22 08:20 Dose: 20 mg Ondansetron HCl (Ondansetron 4 Mg/2 Ml Vial) 4 mg IV Q4HP PRN PRN Reason: Nausea And Vomiting Polyethylene Glycol (Polyethylene Glycol 3350 17 Gm Packet) 17 gm PO DAILYP PRN PRN Reason: Constipation Potassium Chloride (Potassium Chloride 20 Meq Tablet) 40 meq PO UD PRN PRN Reason: Potssium is 3-3.5 Potassium Chloride (Potassium Chloride 20 Meq Tablet) 40 meq PO UD PRN PRN Reason: Potassium < 3 Senna (Sennosides 1 Tablet) 2 tab PO DAILYP PRN PRN Reason: Constipation Sodium Chloride (0.9 % Sodium Chloride 10 Ml Syringe) 10 ml IV Q8 [facility] Last Admin: 04/08/22 05:46 Dose: 10 ml A/P Narrative A/P Narrative: A: *Acute hypoxic respiratory failure: 05/04 -was on vapotherm initially, now on 4L NC *Pneumonia w/ARDS: -concern initially was cardiac component but echo looks good & did not respond as well as expected to diuresis -Pt had covid while in [place] last year, hospitalized for 4-days - 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 *CKD IIIb: *HTN/HLD: *GERD: *h/o hemoarrhagic CVA (2019): *Obesity: BMI 35 *Mild bradycardia: P: -O2 supp, wean as able -IV abx, pending BC/SC -CT chest pending -IS/Acapella, prn nebs, RT -monitor renal fxn, i/o, trend cbc/cmp -Continue home asa/statin -cont home ccb/bb(decrease dose)/acei -ssi, hold metformin for now -PT/OT -CM for placement needs -ppx: Lovenox / home ppi Time Spent With Patient Time: Total time spent is greater than 50% in coordination of care (as documented) at patient's floor/unit and/or counseling patient: Total time spent with greater than 50% in coordination of care (as documented) at patient's floor/unit and/or counseling patient:: 50 - 70 minutes QUALITY VTE Deep Vein Thrombosis/Pulmonary Embolism Present on Admission: No
[2022-04-08] MEDS: AZITHROMYCIN 500 MG in DEXTROSE 5% IN WATER 250 ML IV SCH (09:36)
[2022-04-08] MEDS: cefTRIAXone 1 GM VIAL IV SCH (09:36)
[2022-04-08] MEDS: ENOXAPARIN 40 MG/0.4 ML SYRINGE SQ SCH (09:36)
[2022-04-08] MEDS ORDERED: methylPREDNISolone SOD SUCC 125 MG/2 ML VIAL IV SCH (09:51)
--- NOTE | 2022-04-08 10:36 | Discharge Summary ---
Discharge Provider Provider IMPORTANT FOLLOW-UP INFORMATION FOR PCP: Patient information: Note initiated : 04/08/22 at 10:34 am Service Date, if different from initiated Date: [] Patient: Franki Baxter 77 y/o M admitted on 04/06/22 for Shortness of breath. Chief Complaint: [] Date of admission: 04/06/22 17:20 Primary care physician: Rachelle Cheema Consults: 04/06/22 Consult to Physician [CONS] Stat Comment: Consulting Provider: Srinath Ray Reason For Exam: Physician to Consult COURSE Hospital Course Hospital course: History of present illness: Mr. Baxter is a 77 year old M Presents the ED with increasing shortness of breath. Patient was found to have oxygen saturation of 65% on room air when he arrived. Patient said his primary doctor says he has a touch of COVID. Patient has a history of smoking but quit in the mid . Patient states his shortness of breath for a long time especially with exertion but usually when he sits down he gets better. However the past week he said his dyspnea on exertion has been increasing and not improving quickly with rest especially today he can hardly walk across to his living room. Patient sleeps in a bed as opposed to recliner and does not report any increased shortness of breath or sleeping. Denies any weight gain or edema. Denies any chest pain. Denies any body aches or flulike symptoms. Patient denies any cough. Denies any fevers says he has had some chills in the morning but unimpressive. He does say his brother has been sick recently, the only sick contact has had. Patient has not not had the flu vaccine and does not sound like he is having COVID booster. He did have COVID done in [place] last year and was in the hospital for 4 days. In the ED he was placed on oxygen mask at 8 L. Renal function appears to be near baseline. Does have a lactate of 3 and a pH of 7.31. Chest x-ray with bilateral pneumonia. Rapid flu and COVID negative but the Cepheid test for COVID is pending. 04/07 Was on Vapotherm overnight. Now on 6 L high flow nasal cannula. Patient has a mild cough today, productive. Says shortness of breath at present is improving. Echocardiogram pending. Renal function no change. 04/08 Patient slept fairly well last night. Patient says he is shortness of breath is continued to improve. Is a very mild occasional cough. He is on 4 L nasal cannula although with up moving around exertion he still will desat with that. CT chest pending. Atenolol decreased for bradycardia. 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 *CKD IIIb: *HTN/HLD: *GERD: *h/o hemoarrhagic CVA (2019): *Obesity: BMI 35 *Mild bradycardia: resolved with decreasing dose of BB P: -abx -script for home long-acing IH's -Referral to see Pulmonology for PFT and COPD Discharge diagnosis: Acute hypoxic respite failure pneumonia ards COPD Secondary discharge diagnosis: Lactic acidosis diabetes chronic kidney disease hypertension GERD obesity Time Spent with Patient Time attestation: Total time spent providing and/or coordinating discharge services: Time spent: Greater than 30 minutes EXAM Constitutional Vitals: Temp Pulse Resp BP Pulse Ox O2 Del Method O2 Flow Rate 96.8 F L 59 L 22 133/79 96 4 04/08/22 08:01 04/08/22 08:01 04/08/22 08:01 04/08/22 08:01 04/08/22 08:01 04/08/22 08:00 04/08/22 08:00 Discharge Data Data Completed and Pending Labs on day of discharge: Labs from last 24 hours 04/08/22 06:06 Sodium 139 Potassium 4.6 Chloride 104 Carbon Dioxide 25 Anion Gap 10.0 BUN 29 H Creatinine 1.3 H GFR Calculation 53 Glucose 153 H Calcium 9.8 Preliminary micro results at discharge 04/06/22 12:56 Blood Culture - Preliminary Blood 04/06/22 12:51 Blood Culture - Preliminary Blood Discharge Plan Patient/Caregiver Discharge Instructions Activity: increase activity as tolerated Diet: Regular Diet Prescriptions: New budesonide-formoterol [Symbicort] 160-4.5 mcg/actuation HFA aerosol inhaler 2 puff inhalation BID Qty: 10.2 0RF Continued aspirin 81 mg tablet,delayed release (DR/EC) 81 mg PO QDAY multivitamin 1 tab PO QDAY atorvastatin 40 mg tablet 40 mg PO QDAY cholecalciferol (vitamin D3) 1,000 unit capsule 5,000 unit PO QWEEK metformin 1,000 mg tablet extended release 24hr 1,000 mg PO BID glipizide 10 mg tablet extended release 24hr 2 tab PO QDAY amlodipine 5 mg tablet 1 tab PO QDAY omeprazole 20 mg Capsule,Delayed Release(Dr/Ec) 20 mg PO QDAY albuterol sulfate 90 mcg/actuation HFA aerosol inhaler 2 puff INHALATION Q4HP PRN (Reason: dyspnea) pioglitazone 30 mg tablet 1 tab PO QAM lisinopril 40 mg tablet 1 tab PO QDAY atenolol 50 mg tablet 100 mg PO QDAY Follow Up Plan Follow up with: Rachelle Cheema ARNP [Primary Care Provider] - Patient Disposition: Home, Self-Care Prognosis: Fair Overall status at discharge: patient is progressing back to baseline QUALITY VTE Deep Vein Thrombosis/Pulmonary Embolism Present on Admission: No
--- NOTE | 2022-04-08 12:46 | Cat Scan Report ---
CLINICAL INFORMATION: Pulmonary infiltrates in the lower lobes COMPARISON: Portable chest x-ray 04/06/2022 TECHNIQUE: 0.625 mm axial slices were obtained from the lung apices through the bases without intravenous contrast. 2.5 mm Sagittal, coronal and axial reformatted images were processed and reviewed at bone, lung and soft tissue windows. 7 mm axial MIP images were also reconstructed to optimize pulmonary nodule detection.The exam was performed using radiation dose optimization techniques including, but not limited to, automated exposure control, adjustment of the mA and/or kV according to patient size and use of iterative reconstruction technique. FINDINGS: Pulmonary parenchymal windows show severe centrilobular emphysema featuring chronic bronchitis with elevated lung volumes wall thickening/dilatation of bronchi and multiple bullae throughout both lungs but most prominently in the upper lobes where there is near-complete parenchymal replacement. There is subsegmental atelectasis both posterior lower lobes and scattered fibrosis the periphery of both lungs. Scattered well circumscribed solid pulmonary nodules are also appreciated: 4.5 mm pleural-based nodule lateral right upper lobe on image 32, 5.6 mm nodule along the major fissure in the right lower lobe on image 65 likely a benign subpulmonic lymph node. 6.7 mm nodule in the right middle lobe adjacent to the minor fissure on image 73 which is again likely a benign subpulmonic lymph node. A 14 mm pleural-based nodule in the medial left upper lobe on image 44 is also likely benign subpulmonic lymph node. The left side, a 5 mm nodule in the upper lobe on image 60 adjacent to major fissure is likely benign subpulmonic lymph node. Small bilateral pleural effusions are noted. Mediastinal windows show the heart is normal in size with scattered calcific plaque in the coronary arteries. The central pulmonary arteries are enlarged compatible with pulmonary hypertension related to COPD. the main pulmonary artery diameter is 4 cm. The noncontrast thoracic aorta is normal in diameter. There is no adenopathy in the mediastinal, hilar or axillary regions. The esophagus is grossly normal. The thyroid is unremarkable. Bones and soft tissues the chest wall are unremarkable. Images through the superior abdomen show left nephrectomy changes. There is mild atrophy of the pancreas. IMPRESSION: 1. Interval resolution in bilateral lower lobe infiltrates. There is now only subsegmental atelectasis in the posterior lower lobes. Small bilateral pleural effusions persist 2. Severe centrilobular emphysema 3. Moderate central pulmonary artery enlargement compatible with pulmonary hypertension related to COPD. 4. Scattered pulmonary nodules, predominantly in the right lung, which are likely benign subpulmonic lymph nodes. If clinically indicated, consider chest CT one year for reevaluation 5. Moderate pancreatic atrophy 6. Left nephrectomy changes. Interpreted and Authenticated by: Ton Hardwick 04/08/22
[2022-04-08] MEDS: BUDESONIDE 0.5 MG/2 ML AMPUL.NEB NEB SCH ×2 (12:52→19:27)
[2022-04-08] MEDS: IPRATROPIUM/ALBUTEROL 3 ML AMPUL.NEB NEB SCH ×3 (12:52→19:27)
[2022-04-08] MEDS: methylPREDNISolone SOD SUCC 40 MG/ML VIAL IV SCH (20:48)
[2022-04-09] MEDS: INSULIN LISPRO 1 UNIT/0.01 ML UNIT SQ SCH ×7 (00:52→23:12)
[2022-04-09] MEDS: 0.9 % SODIUM CHLORIDE 10 ML SYRINGE IV SCH ×3 (05:03→20:55)
[2022-04-09] MEDS: OMEPRAZOLE 20 MG CAPSULE PO SCH (07:12)
--- NOTE | 2022-04-09 08:15 | Internal Med Progress Note ---
SUBJECTIVE Subjective Patient information: Note initiated : 04/09/22 at 8:10 am Service Date, if different from initiated Date: [] Patient: Franki Baxter a 77 y/o M admitted on 04/06/22 for Shortness of breath. Chief Complaint: [] Interval history: History of present illness: Mr. Baxter is a 77 year old M Presents the ED with increasing shortness of breath. Patient was found to have oxygen saturation of 65% on room air when he arrived. Patient said his primary doctor says he has a touch of COVID. Patient has a history of smoking but quit in the mid . Patient states his shortness of breath for a long time especially with exertion but usually when he sits down he gets better. However the past week he said his dyspnea on exertion has been increasing and not improving quickly with rest especially today he can hardly walk across to his living room. Patient sleeps in a bed as opposed to recliner and does not report any increased shortness of breath or sleeping. Denies any weight gain or edema. Denies any chest pain. Denies any body aches or flulike symptoms. Patient denies any cough. Denies any fevers says he has had some chills in the morning but unimpressive. He does say his brother has been sick recently, the only sick contact has had. Patient has not not had the flu vaccine and does not sound like he is having COVID booster. He did have COVID done in [place] last year and was in the hospital for 4 days. In the ED he was placed on oxygen mask at 8 L. Renal function appears to be near baseline. Does have a lactate of 3 and a pH of 7.31. Chest x-ray with bilateral pneumonia. Rapid flu and COVID negative but the Cepheid test for COVID is pending. 04/07 Was on Vapotherm overnight. Now on 6 L high flow nasal cannula. Patient has a mild cough today, productive. Says shortness of breath at present is improving. Echocardiogram pending. Renal function no change. 04/08 Patient slept fairly well last night. Patient says he is shortness of breath is continued to improve. Is a very mild occasional cough. He is on 4 L nasal cannula although with up moving around exertion he still will desat with that. CT chest pending. Atenolol decreased for bradycardia. 04/09 No overnight event or new complaints. Patient on 3 L nasal cannula. To have respiratory therapy evaluation. Follow-up CT yesterday showed interval resolution of the bilateral lobe lower lobe infiltrates with some Remaining atelectasis. And small bilateral pleural effusions. Severe emphysema noted throughout Review of Systems: denies headache/fever/chills/nausea/vomiting/chest or abdominal pain/diarrhea. Otherwise see above. Constitutional Vitals: Vital Signs Temp Pulse Resp BP Pulse Ox O2 Del Method O2 Flow Rate 97.5 F 77 22 133/85 91 Bubble Humidifier 3 04/09/22 07:05 04/09/22 07:05 04/09/22 07:05 04/09/22 06:01 04/09/22 07:05 04/09/22 07:05 04/09/22 07:05 Period Temp Pulse Resp BP Sys/Cedillo Pulse Ox O2 Del Method O2 Flow Rate Last 24 Hr 97.2 F-98.2 F 62-83 10-26 90-148/49-89 81-98 Bubble Humidifier-Nasal Cannula 2-4 Intake and Output 04/08/22 04/09/22 04/09/22 19:59 03:59 11:59 Intake Total 480 Output Total 575 300 Balance 480 -575 -300 Weight 112.854 kg Intake & Output: Intake & Output 04/08/22 04/09/22 04/09/22 19:59 03:59 11:59 Intake Total 480 Output Total 575 300 Balance 480 -575 -300 Weight 112.854 kg Intake: Oral 480 Output: Void Amount 575 300 Other: Meal Dinner Percent of Meal Consumed 100% Feeding Ability Independent Urine Appearance Clear Clear Urine Color Yellow Yellow Urine Odor Normal Normal Exam: General: Alert, Awake, No acute Distress, obese Eyes/N/T: EOMI, Head/Neck: neck supple, CV: RRR, No murmurs, Pulm: clear b/ll, no wheezing Abd: soft, nontender, +BS x4 Ext: no clubbing/cyanosis, trace b/l LE edema Neuro: Alert, no focal deficits, moves all extremities, Skin: warm/dry OBJ DATA Labs CBC & Chem 7: 04/07/22 05:55 04/08/22 06:06 Labs: Abnormal Lab Results 04/08/22 04/07/22 04/07/22 06:06 05:55 05:55 RBC 4.16 L Hgb 12.2 L MCHC 30.4 L RDW 15.2 H Lymph # (Auto) 1.49 L POC pH POC pO2 POC HCO3 POC ABG Base Excess POC VBG pH POC VBG pCO2 at Temp POC VBG HCO3 POC VBG Total CO2 POC VBG Base Excess VBG Lactic Acid Hgb O2 Saturation POC Chloride Carbon Dioxide POC Total CO2 Anion Gap 7.0 L POC BUN BUN 29 H 25 H Creatinine 1.3 H 1.4 H POC Creatinine Glucose 153 H 145 H POC Glucose Lactate Dehydrogenase 244 H NT-Pro-B Natriuret Pep Triglycerides 175 H 04/06/22 04/06/22 04/06/22 15:13 14:22 14:09 RBC Hgb MCHC RDW Lymph # (Auto) POC pH 7.32 L POC pO2 63 L POC HCO3 20.5 L POC ABG Base Excess -6.0 L POC VBG pH POC VBG pCO2 at Temp POC VBG HCO3 POC VBG Total CO2 POC VBG Base Excess VBG Lactic Acid Hgb O2 Saturation 90.0 L POC Chloride Carbon Dioxide 18 L POC Total CO2 22.0 L Anion Gap POC BUN BUN 24 H Creatinine 1.3 H POC Creatinine Glucose 173 H POC Glucose Lactate Dehydrogenase NT-Pro-B Natriuret Pep 1224.0 H Triglycerides 04/06/22 04/06/22 04/06/22 12:18 12:17 12:11 RBC 4.52 L Hgb 13.3 L MCHC 30.9 L RDW 15.4 H Lymph # (Auto) 1.32 L POC pH POC pO2 POC HCO3 POC ABG Base Excess POC VBG pH 7.31 L POC VBG pCO2 at Temp 38.6 L POC VBG HCO3 19.6 L POC VBG Total CO2 21.0 L POC VBG Base Excess -7.0 L VBG Lactic Acid 3.0 H Hgb O2 Saturation POC Chloride 111 H Carbon Dioxide POC Total CO2 21.0 L Anion Gap POC BUN 26 H BUN Creatinine POC Creatinine 1.6 H Glucose POC Glucose 214 H Lactate Dehydrogenase NT-Pro-B Natriuret Pep Triglycerides Meds: Medications Acetaminophen (Acetaminophen 325 Mg Tablet) 650 mg PO Q6HP PRN; Protocol PRN Reason: Per Pain Protocol/Fever > 101 Albuterol/Ipratropium (Ipratropium/Albuterol 3 Ml Ampul.Neb) 3 ml NEB Q4HP PRN PRN Reason: Shortness Of Breath Last Admin: 04/09/22 05:03 Dose: 3 ml Amlodipine Besylate (Amlodipine 5 Mg Tablet) 5 mg PO QDAY [facility] Last Admin: 04/08/22 08:19 Dose: 5 mg Aspirin (Aspirin 81 Mg Tab.Chew) 81 mg PO QDAY [facility] Last Admin: 04/08/22 08:19 Dose: 81 mg Atenolol (Atenolol 50 Mg Tablet) 75 mg PO QDAY [facility] Last Admin: 04/08/22 09:34 Dose: Not Given Atorvastatin Calcium (Atorvastatin 40 Mg Tablet) 40 mg PO QDAY [facility] Last Admin: 04/08/22 08:20 Dose: 40 mg Budesonide (Budesonide 0.5 Mg/2 Ml Ampul.Neb) 0.5 mg NEB Q12 [facility] Last Admin: 04/08/22 19:27 Dose: 0.5 mg Ceftriaxone Sodium (Ceftriaxone 1 Gm Vial) 1 gm IV Q24H [facility] Last Admin: 04/08/22 09:36 Dose: 1 gm Dextrose (Dextrose 50% 50 Ml Vial) 0 ml IV UD PRN PRN Reason: Per Sliding Scale Diagnostic Test (Pha) (Accu-Chek 1 Each Strip) 1 each FS ACHS [facility] Last Admin: 04/09/22 07:06 Dose: 1 each Enoxaparin Sodium (Enoxaparin 40 Mg/0.4 Ml Syringe) 40 mg SQ DAILY [facility] Last Admin: 04/08/22 09:36 Dose: 40 mg Glucose (Dextrose 31 Gm Oral.Susp) 15 gm PO PRN PRN PRN Reason: Hypoglycemia Potassium Chloride 40 meq/ (Dextrose) 520 mls @ 130 mls/hr IV UD PRN PRN Reason: Potassium < 3 Magnesium Sulfate (Magnesium Sulfate) 2 gm in 50 mls @ 50 mls/hr IV UD PRN PRN Reason: Magnesium </= 1.6 Insulin Human Lispro (Insulin Lispro 1 Unit/0.01 Ml Unit) 0 unit SQ [facility]; Protocol Last Admin: 04/09/22 07:12 Dose: 8 unit Lisinopril (Lisinopril 20 Mg Tablet) 40 mg PO QDAY [facility] Last Admin: 04/08/22 08:19 Dose: 40 mg Methylprednisolone Sodium Succinate (Methylprednisolone Sod Succ 40 Mg/Ml Vial) 40 mg IV Q12 [facility] Last Admin: 04/08/22 20:48 Dose: 40 mg Omeprazole (Omeprazole 20 Mg Capsule) 20 mg PO QAMAC [facility] Last Admin: 04/09/22 07:12 Dose: 20 mg Ondansetron HCl (Ondansetron 4 Mg/2 Ml Vial) 4 mg IV Q4HP PRN PRN Reason: Nausea And Vomiting Polyethylene Glycol (Polyethylene Glycol 3350 17 Gm Packet) 17 gm PO DAILYP PRN PRN Reason: Constipation Potassium Chloride (Potassium Chloride 20 Meq Tablet) 40 meq PO UD PRN PRN Reason: Potssium is 3-3.5 Potassium Chloride (Potassium Chloride 20 Meq Tablet) 40 meq PO UD PRN PRN Reason: Potassium < 3 Senna (Sennosides 1 Tablet) 2 tab PO DAILYP PRN PRN Reason: Constipation Sodium Chloride (0.9 % Sodium Chloride 10 Ml Syringe) 10 ml IV Q8 [facility] Last Admin: 04/09/22 05:03 Dose: 10 ml A/P Narrative A/P Narrative: A: *Acute hypoxic respiratory failure: 2/2 pna and underlying severe emphysema -was on vapotherm initially, now on 2-3L NC *Pneumonia: -concern initially was cardiac component but echo looks good & did not respond as well as expected to diuresis -Pt had covid while in [place] last year, hospitalized for 4-days -pct/crp low, afebrile. 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 *CKD IIIb: *HTN/HLD: *GERD: *h/o hemoarrhagic CVA (2019): *Obesity: BMI 35 *Mild bradycardia: resolved with decreasing dose of BB P: -O2 supp, wean as able -IV abx, pending BC/SC -IS/Acapella, prn nebs, RT -monitor renal fxn, i/o, trend cbc/cmp -Continue home asa/statin -cont home ccb/bb(decrease dose)/acei -ssi, hold metformin for now -PT/OT -CM for placement needs -ppx: Lovenox / home ppi Time Spent With Patient Time: Total time spent is greater than 50% in coordination of care (as documented) at patient's floor/unit and/or counseling patient: Total time spent with greater than 50% in coordination of care (as documented) at patient's floor/unit and/or counseling patient:: 35 - 50 minutes QUALITY VTE Deep Vein Thrombosis/Pulmonary Embolism Present on Admission: No
[2022-04-09] MEDS: ENOXAPARIN 40 MG/0.4 ML SYRINGE SQ SCH (08:43)
[2022-04-09] MEDS: methylPREDNISolone SOD SUCC 40 MG/ML VIAL IV SCH ×2 (08:43→20:55)
[2022-04-09] MEDS: cefTRIAXone 1 GM VIAL IV SCH (08:43)
[2022-04-09] MEDS: ATENOLOL 50 MG TABLET PO SCH (08:43)
[2022-04-09] MEDS: ASPIRIN 81 MG TAB.CHEW PO SCH (08:43)
[2022-04-09] MEDS: amLODIPine 5 MG TABLET PO SCH (08:44)
[2022-04-09] MEDS: LISINOPRIL 20 MG TABLET PO SCH (08:44)
[2022-04-09] MEDS: ATORVASTATIN 40 MG TABLET PO SCH (08:44)
[2022-04-09] MEDS: BUDESONIDE 0.5 MG/2 ML AMPUL.NEB NEB SCH ×2 (10:20→20:09)
[2022-04-09] MEDS: IPRATROPIUM/ALBUTEROL 3 ML AMPUL.NEB NEB SCH ×2 (13:14→20:12)
[2022-04-10] MEDS: INSULIN LISPRO 1 UNIT/0.01 ML UNIT SQ SCH ×7 (01:24→20:27)
[2022-04-10] MEDS: IPRATROPIUM/ALBUTEROL 3 ML AMPUL.NEB NEB SCH ×4 (02:10→18:53)
[2022-04-10] MEDS: 0.9 % SODIUM CHLORIDE 10 ML SYRINGE IV SCH ×3 (05:13→20:28)
[2022-04-10] MEDS: LISINOPRIL 20 MG TABLET PO SCH (08:00)
[2022-04-10] MEDS: ASPIRIN 81 MG TAB.CHEW PO SCH (08:00)
[2022-04-10] MEDS: ATENOLOL 50 MG TABLET PO SCH (08:00)
[2022-04-10] MEDS: methylPREDNISolone SOD SUCC 40 MG/ML VIAL IV SCH (08:00)
[2022-04-10] MEDS: OMEPRAZOLE 20 MG CAPSULE PO SCH (08:01)
[2022-04-10] MEDS: amLODIPine 5 MG TABLET PO SCH (08:01)
[2022-04-10] MEDS: ATORVASTATIN 40 MG TABLET PO SCH (08:01)
[2022-04-10] MEDS: ENOXAPARIN 40 MG/0.4 ML SYRINGE SQ SCH (08:01)
[2022-04-10] MEDS: BUDESONIDE 0.5 MG/2 ML AMPUL.NEB NEB SCH ×2 (08:17→18:51)
[2022-04-10] MEDS: cefTRIAXone 1 GM VIAL IV SCH (10:18)
--- NOTE | 2022-04-10 11:04 | Internal Med Progress Note ---
SUBJECTIVE Subjective Patient information: Note initiated : 04/10/22 at 11:02 am Service Date, if different from initiated Date: [] Patient: Franki Baxter 77 y/o M admitted on 04/06/22 for Shortness of breath. Chief Complaint: [SOB] Principal diagnosis: Acute hypoxemic resp failure Interval history: The patient was resting comfortably in bed. He is able to speak in full sentences. He denies chest pain, shortness of breath or palpitations. Constitutional Vitals: Vital Signs Temp Pulse Resp BP Pulse Ox O2 Del Method O2 Flow Rate 98.1 F 71 16 114/70 94 4 04/10/22 08:00 04/10/22 08:18 04/10/22 08:18 04/10/22 08:00 04/10/22 08:18 04/10/22 08:18 04/10/22 08:18 Period Temp Pulse Resp BP Sys/Cedillo Pulse Ox O2 Del Method O2 Flow Rate Last 24 Hr 97.2 F-98.1 F 68-91 12-20 114-157/56-98 91-98 High Flow Nasal Cannula-Oxymask 3-4 Intake and Output 04/09/22 04/10/22 04/10/22 19:59 03:59 11:59 Intake Total 840 720 Output Total 600 Balance 840 120 Weight 112.582 kg Intake & Output: Intake & Output 04/09/22 04/10/22 04/10/22 19:59 03:59 11:59 Intake Total 840 720 Output Total 600 Balance 840 120 Weight 112.582 kg Intake: Oral 840 720 Output: Void Amount 600 Other: Meal Dinner Percent of Meal Consumed 100% Feeding Ability Independent Urine Appearance Clear Urine Color Yellow # Voids 1 Head Head exam: Present atraumatic and normal inspection Eye Eye exam: Present normal appearance ENT ENT exam: Present mucous membranes moist, normal exam and normal external ear exam Neck Neck exam: Present normal inspection Respiratory Respiratory exam: Present decreased breath sounds and prolonged expiratory phase; Absent accessory muscle use or respiratory distress Cardiovascular Cardiovascular exam: Present normal rate and rhythm GI/Abdominal GI/Abdominal exam: Present normal bowel sounds Back Exam Back exam: Present normal inspection Neurological Exam Neurological exam: Present alert and oriented X3 Skin Skin exam: Present intact and warm OBJ DATA Labs CBC & Chem 7: 04/07/22 05:55 04/08/22 06:06 Labs: Abnormal Lab Results 04/08/22 06:06 BUN 29 H Creatinine 1.3 H Glucose 153 H Meds: Medications Acetaminophen (Acetaminophen 325 Mg Tablet) 650 mg PO Q6HP PRN; Protocol PRN Reason: Per Pain Protocol/Fever > 101 Albuterol/Ipratropium (Ipratropium/Albuterol 3 Ml Ampul.Neb) 3 ml NEB Q4HP PRN PRN Reason: Shortness Of Breath Last Admin: 04/09/22 05:03 Dose: 3 ml Albuterol/Ipratropium (Ipratropium/Albuterol 3 Ml Ampul.Neb) 3 ml NEB Q6HRT [facility] Last Admin: 04/10/22 08:17 Dose: 3 ml Amlodipine Besylate (Amlodipine 5 Mg Tablet) 5 mg PO QDAY [facility] Last Admin: 04/10/22 08:01 Dose: 5 mg Aspirin (Aspirin 81 Mg Tab.Chew) 81 mg PO QDAY [facility] Last Admin: 04/10/22 08:00 Dose: 81 mg Atenolol (Atenolol 50 Mg Tablet) 75 mg PO QDAY [facility] Last Admin: 04/10/22 08:00 Dose: 75 mg Atorvastatin Calcium (Atorvastatin 40 Mg Tablet) 40 mg PO QDAY [facility] Last Admin: 04/10/22 08:01 Dose: 40 mg Budesonide (Budesonide 0.5 Mg/2 Ml Ampul.Neb) 0.5 mg NEB Q12 [facility] Last Admin: 04/10/22 08:17 Dose: 0.5 mg Dextrose (Dextrose 50% 50 Ml Vial) 0 ml IV UD PRN PRN Reason: Per Sliding Scale Diagnostic Test (Pha) (Accu-Chek 1 Each Strip) 1 each FS ACHS [facility] Last Admin: 04/10/22 07:24 Dose: 1 each Enoxaparin Sodium (Enoxaparin 40 Mg/0.4 Ml Syringe) 40 mg SQ DAILY [facility] Last Admin: 04/10/22 08:01 Dose: 40 mg Glucose (Dextrose 31 Gm Oral.Susp) 15 gm PO PRN PRN PRN Reason: Hypoglycemia Potassium Chloride 40 meq/ (Dextrose) 520 mls @ 130 mls/hr IV UD PRN PRN Reason: Potassium < 3 Magnesium Sulfate (Magnesium Sulfate) 2 gm in 50 mls @ 50 mls/hr IV UD PRN PRN Reason: Magnesium </= 1.6 Insulin Human Lispro (Insulin Lispro 1 Unit/0.01 Ml Unit) 0 unit SQ ACHS [facility]; Protocol Last Admin: 04/10/22 07:57 Dose: 4 unit Lisinopril (Lisinopril 20 Mg Tablet) 40 mg PO QDAY [facility] Last Admin: 04/10/22 08:00 Dose: 40 mg Omeprazole (Omeprazole 20 Mg Capsule) 20 mg PO QAMAC [facility] Last Admin: 04/10/22 08:01 Dose: 20 mg Ondansetron HCl (Ondansetron 4 Mg/2 Ml Vial) 4 mg IV Q4HP PRN PRN Reason: Nausea And Vomiting Polyethylene Glycol (Polyethylene Glycol 3350 17 Gm Packet) 17 gm PO DAILYP PRN PRN Reason: Constipation Potassium Chloride (Potassium Chloride 20 Meq Tablet) 40 meq PO UD PRN PRN Reason: Potssium is 3-3.5 Potassium Chloride (Potassium Chloride 20 Meq Tablet) 40 meq PO UD PRN PRN Reason: Potassium < 3 Prednisone (Prednisone 20 Mg Tablet) 40 mg PO [facility] Senna (Sennosides 1 Tablet) 2 tab PO DAILYP PRN PRN Reason: Constipation Sodium Chloride (0.9 % Sodium Chloride 10 Ml Syringe) 10 ml IV Q8 [facility] Last Admin: 04/10/22 05:13 Dose: 10 ml A/P Narrative A/P Narrative: A: *Acute hypoxic respiratory failure: 2/2 pna and underlying severe emphysema -was on vapotherm initially, now on 2-3L NC *Pneumonia: -concern initially was cardiac component but echo looks good & did not respond as well as expected to diuresis -Pt had covid while in [place] last year, hospitalized for 4-days -pct/crp low, afebrile. 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 *CKD IIIb: *HTN/HLD: *GERD: *h/o hemoarrhagic CVA (2019): *Obesity: BMI 35 *Mild bradycardia: resolved with decreasing dose of BB P: -Complete 5 days of abx -Switch solu medrol to pred today -PT/OT eval, down to 4L NC -O2 supp, wean as able -IV abx, pending BC/SC-> neg -IS/Acapella, prn nebs, RT -monitor renal fxn, i/o, trend cbc/cmp -Continue home asa/statin -cont home ccb/bb(decrease dose)/acei -ssi, hold metformin for now -PT/OT -CM for placement needs -ppx: Lovenox / home ppi Time Spent With Patient Time: Total time spent is greater than 50% in coordination of care (as documented) at patient's floor/unit and/or counseling patient: Total time spent with greater than 50% in coordination of care (as documented) at patient's floor/unit and/or counseling patient:: 25 - 35 minutes QUALITY VTE Deep Vein Thrombosis/Pulmonary Embolism Present on Admission: No
[2022-04-11] MEDS: IPRATROPIUM/ALBUTEROL 3 ML AMPUL.NEB NEB SCH ×3 (00:36→13:09)
[2022-04-11] MEDS: 0.9 % SODIUM CHLORIDE 10 ML SYRINGE IV SCH (04:58)
[2022-04-11] MEDS: BUDESONIDE 0.5 MG/2 ML AMPUL.NEB NEB SCH (07:52)
[2022-04-11] MEDS ORDERED: predniSONE 20 MG TABLET PO SCH (08:00)
[2022-04-11] MEDS: INSULIN LISPRO 1 UNIT/0.01 ML UNIT SQ SCH ×2 (08:01→12:31)
[2022-04-11] MEDS: amLODIPine 5 MG TABLET PO SCH (08:02)
[2022-04-11] MEDS: ASPIRIN 81 MG TAB.CHEW PO SCH (08:02)
[2022-04-11] MEDS: LISINOPRIL 20 MG TABLET PO SCH (08:02)
[2022-04-11] MEDS: ATORVASTATIN 40 MG TABLET PO SCH (08:02)
[2022-04-11] MEDS: OMEPRAZOLE 20 MG CAPSULE PO SCH (08:02)
[2022-04-11] MEDS: ATENOLOL 50 MG TABLET PO SCH (08:02)
[2022-04-11] MEDS: ENOXAPARIN 40 MG/0.4 ML SYRINGE SQ SCH (08:03)
--- NOTE | 2022-04-11 13:24 | Discharge Summary ---
Discharge Provider Provider IMPORTANT FOLLOW-UP INFORMATION FOR PCP: 1. Repeat home O2 assessment 2. Pulmonary referral 3. Pulmonary rehab Patient information: Note initiated : 04/11/22 at 1:20 pm Service Date, if different from initiated Date: [] Patient: Franki Baxter 77 y/o M admitted on 04/06/22 for Shortness of breath. Chief Complaint: [SOB] Date of admission: 04/06/22 17:20 Discharge date: 04/11/22 Primary care physician: Rachelle Cheema Consults: 04/06/22 Consult to Physician [CONS] Stat Comment: Consulting Provider: Srinath Ray Reason For Exam: Physician to Consult Attending physician on discharge: Shanita Crowe COURSE Hospital Course Hospital course: Apr 11: I took over the care of this patient yesterday at which point he was medically improving. His supplemental O2 requirements have come down greatly. He is now completed 5 days of antibiotics and received 4 days of Solu-Medrol. The patient was maintained on standing duo nebs and Pulmicort nebulizers. He is done well with RT and PT. Is eager to return home. He will be discharged with supplemental O2. A/P Narrative: A: *Acute hypoxic respiratory failure: 2/2 pna and underlying severe emphysema -was on vapotherm initially, now on 2-3L NC *Pneumonia: -concern initially was cardiac component but echo looks good & did not respond as well as expected to diuresis -Pt had covid while in [place] last year, hospitalized for 4-days -pct/crp low, afebrile. 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 *CKD IIIb: *HTN/HLD: *GERD: *h/o hemoarrhagic CVA (2019): *Obesity: BMI 35 *Mild bradycardia: resolved with decreasing dose of BB P: -Complete 5 days of abx -Switch solu medrol to pred today -PT/OT eval, down to 4L NC -O2 supp, wean as able -IV abx, pending BC/SC-> neg -IS/Acapella, prn nebs, RT -monitor renal fxn, i/o, trend cbc/cmp -Continue home asa/statin -cont home ccb/bb(decrease dose)/acei -ssi, hold metformin for now -PT/OT -CM for placement needs -ppx: Lovenox / home ppi Discharge diagnosis: Acute hypoxemic respiratory failure, community-acquired pneumonia Time Spent with Patient Time attestation: Total time spent providing and/or coordinating discharge services: Time spent: Greater than 30 minutes EXAM Constitutional Vitals: Temp Pulse Resp BP Pulse Ox O2 Del Method O2 Flow Rate 98.2 F 71 20 139/83 93 4 04/11/22 11:57 04/11/22 11:57 04/11/22 11:57 04/11/22 11:57 04/11/22 11:57 04/11/22 11:57 04/11/22 11:57 General appearance: average body habitus Head Head exam: Present atraumatic, normal inspection and normocephalic Eye Eye exam: Present EOMI, normal appearance and PERRL; Absent conjunctival injection ENT ENT exam: Present normal exam; Absent mucous membranes dry Neck Neck exam: Present full ROM; Absent lymphadenopathy Respiratory Respiratory exam: Present decreased breath sounds; Absent rhonchi or wheezes Cardiovascular Cardiovascular exam: Present normal rate and rhythm and RRR; Absent JVD GI/Abdominal GI/Abdominal exam: Present normal bowel sounds and soft; Absent diminished bowel sounds, distended, guarding, mass, rebound or tenderness Neurological Exam Neurological exam: Present alert, CN II-XII intact and oriented X3 Psychiatric Psychiatric exam: Present normal affect and normal mood Skin Skin exam: Present intact and warm; Absent erythema, pallor, petechiae or rash Discharge Data Data Completed and Pending Labs on day of discharge: Preliminary micro results at discharge 04/06/22 12:56 Blood Culture - Preliminary Blood 04/06/22 12:51 Blood Culture - Preliminary Blood Discharge Plan Patient/Caregiver Discharge Instructions Activity: increase activity as tolerated Diet: Regular Diet Instructions: Using Oxygen at Home (DC), COPD (Chronic Obstructive Pulmonary Disease) (DC), Chronic Lung Disease and Infection Prevention (DC) Prescriptions: New budesonide-formoterol [Symbicort] 160-4.5 mcg/actuation HFA aerosol inhaler 2 puff inhalation BID Qty: 10.2 0RF Continued aspirin 81 mg tablet,delayed release (DR/EC) 81 mg PO QDAY multivitamin 1 tab PO QDAY atorvastatin 40 mg tablet 40 mg PO QDAY cholecalciferol (vitamin D3) 1,000 unit capsule 5,000 unit PO QWEEK metformin 1,000 mg tablet extended release 24hr 1,000 mg PO BID glipizide 10 mg tablet extended release 24hr 2 tab PO QDAY amlodipine 5 mg tablet 1 tab PO QDAY omeprazole 20 mg Capsule,Delayed Release(Dr/Ec) 20 mg PO QDAY albuterol sulfate 90 mcg/actuation HFA aerosol inhaler 2 puff INHALATION Q4HP PRN (Reason: dyspnea) pioglitazone 30 mg tablet 1 tab PO QAM lisinopril 40 mg tablet 1 tab PO QDAY atenolol 50 mg tablet 100 mg PO QDAY Follow Up Plan Follow up with: Rachelle Cheema ARNP [Primary Care Provider] - Patient Disposition: Home, Self-Care Prognosis: Fair I certify that the patient requires SNF services: No Overall status at discharge: patient is progressing back to baseline Discharge Orders: Discharge Order (Routine); Ordered 04/11/22 Ordered By: Shanita RAMSAY VTE Deep Vein Thrombosis/Pulmonary Embolism Present on Admission: No
== END 2022-04-11 15:40 | disposition home or self-care (01) | DRG 189 ==
LOC: ED 11:58 → ICU 17:20 → MEDSUR 04-09 14:15
PROVIDERS: ADMIT Internal Medicine; ATTEND Student in an Organized Health Care Education/Training Program

== ENCOUNTER 2023-03-16 06:08 | Inpatient (IN) ==
[2023-03-16] MEDS ORDERED: IPRATROPIUM/ALBUTEROL 3 ML AMPUL.NEB NEB ONE ×4 (06:15→12:05)
[2023-03-16] MEDS ORDERED: ALBUTEROL SULFATE 2.5 MG/3 ML NEBULIZER NEB ONE (07:02)
[2023-03-16 07:33] LABS: Basophils # (Auto) 0.03 K/mcL (0.00-0.30); Basophils % (Auto) 0.3 % (0.0-2.0); Eosinophils # (Auto) 0.04 K/mcL (0.00-0.70); Eosinophils % (Auto) 0.4 % (0.0-7.0); Hematocrit 34.3 % (40.1-51.0); Hemoglobin 10.5 g/dL (13.7-17.5); Lymphocytes # (Auto) 1.13 K/mcL (1.50-4.80); Lymphocytes % (Auto) 10.3 % (15.5-49.0); Mean Corpuscular HGB Conc 30.6 g/dL (31.0-36.0); Mean Platelet Volume 11.3 fL (8.8-12.5); Monocytes # (Auto) 0.74 K/mcL (0.10-0.90); Monocytes % (Auto) 6.7 % (1.0-12.0); Neutrophils % (Auto) 81.9 % (38.0-78.0); Platelet Count 221 K/mcL (140-440); RBC 3.81 M/mcL (4.63-6.08); Red Cell Distribution Width 15.7 % (11.5-14.5)
[2023-03-16 07:43] LABS: ALT/SGPT 18 U/L (<40); AST/SGOT 15 U/L (<40); Albumin/Globulin Ratio 1.1 (1.0-2.3); Alkaline Phosphatase 95 U/L (39-117); Bilirubin,Total 0.4 mg/dL (0.1-1.0); Blood Urea Nitrogen 18 mg/dL (8-23); Calcium 9.6 mg/dL (8.6-10.4); Carbon Dioxide 22 mmol/L (22-30); Chloride 100 mmol/L (96-108); Globulin 3.7 gm/dL (2.2-3.7); Glomerular Filtration Rate 48; Glucose 351 mg/dL (70-105)
[2023-03-16 07:51] LABS: proBNP 420.1 pg/mL (<450.0)
[2023-03-16] MEDS ORDERED: cefTRIAXone 1 GM VIAL IV ONE (08:10)
[2023-03-16] MEDS ORDERED: AZITHROMYCIN 500 MG in DEXTROSE 5% IN WATER 250 ML IV ONE (08:10)
[2023-03-16] MEDS ORDERED: MAGNESIUM SULFATE 1 GM/100 ML BAG IV ONE (08:10)
[2023-03-16] MEDS ORDERED: 0.9 % SODIUM CHLORIDE 1,000 ML IV ONE ×2 (08:27→15:33)
[2023-03-16] MEDS ORDERED: FUROSEMIDE 20 MG/2 ML VIAL IV ONE (10:28)
[2023-03-16] MEDS ORDERED: methylPREDNISolone SOD SUCC 125 MG/2 ML VIAL IV ONE (11:17)
[2023-03-16] MEDS ORDERED: ONDANSETRON 4 MG/2 ML VIAL IV PRN (12:35)
[2023-03-16] MEDS ORDERED: POTASSIUM CHLORIDE 20 MEQ TABLET PO PRN ×2 (12:35)
[2023-03-16] MEDS ORDERED: MAGNESIUM SULFATE 2 GM/50 ML BAG IV PRN (12:35)
[2023-03-16] MEDS ORDERED: INSULIN LISPRO 1 UNIT/0.01 ML UNIT SQ SCH (12:35)
[2023-03-16] MEDS ORDERED: POLYETHYLENE GLYCOL 3350 17 GM PACKET PO PRN (12:35)
[2023-03-16] MEDS ORDERED: ENALAPRILAT 1.25 MG/ML VIAL IV PRN (12:35)
[2023-03-16] MEDS ORDERED: IPRATROPIUM/ALBUTEROL 3 ML AMPUL.NEB NEB PRN (12:35)
[2023-03-16] MEDS ORDERED: DEXTROSE 31 GM ORAL.SUSP PO PRN (12:35)
[2023-03-16] MEDS ORDERED: ACETAMINOPHEN 325 MG TABLET PO PRN (12:35)
[2023-03-16] MEDS ORDERED: DEXTROSE 50% 50 ML VIAL IV PRN (12:35)
[2023-03-16] MEDS ORDERED: SENNOSIDES 1 TABLET PO PRN (12:35)
[2023-03-16] MEDS ORDERED: POTASSIUM CHLORIDE 40 MEQ in DEXTROSE 5% IN WATER 500 ML IV PRN (12:35)
[2023-03-16] MEDS: IPRATROPIUM/ALBUTEROL 3 ML AMPUL.NEB NEB SCH ×2 (12:55→17:30)
[2023-03-16 13:26] LABS: POC Calcium, Ionized 1.15 (1.16-1.32); POC Creatinine 1.6 (0.6-1.2); POC Potassium 4.8 (3.3-5.1)
[2023-03-16] MEDS: INSULIN REGULAR, HUMAN 50 UNIT in 0.9 % SODIUM CHLORIDE 99.5 ML IV SCH ×2 (14:17→18:29)
[2023-03-16] MEDS: ENOXAPARIN 40 MG/0.4 ML SYRINGE SQ SCH (14:18)
[2023-03-16] MEDS: methylPREDNISolone SOD SUCC 125 MG/2 ML VIAL IV SCH ×2 (14:27→22:54)
[2023-03-16] MEDS ORDERED: INSULIN REGULAR, HUMAN 1 UNIT/0.01 ML UNIT IV ONE ×5 (15:12→19:31)
[2023-03-16 16:11] LABS: Hemoglobin A1C 11.2 % Hgb (4.0-6.0)
[2023-03-16] MEDS ORDERED: INSULIN REGULAR, HUMAN 1 UNIT/0.01 ML UNIT ONE ×2 (17:29→18:23)
[2023-03-16] MEDS ORDERED: DEXTROSE 5%-1/2NS 1,000 ML IV SCH (17:30)
[2023-03-16 19:25] LABS: ALT/SGPT 17 U/L (<40); AST/SGOT 20 U/L (<40); Albumin 3.9 gm/dL (3.2-5.2); Albumin/Globulin Ratio 1.2 (1.0-2.3); Alkaline Phosphatase 84 U/L (39-117); Bilirubin,Direct < 0.2 mg/dL (0-0.3); Bilirubin,Total 0.3 mg/dL (0.1-1.0); Blood Urea Nitrogen 23 mg/dL (8-23); Calcium 9.3 mg/dL (8.6-10.4); Carbon Dioxide 21 mmol/L (22-30); Chloride 99 mmol/L (96-108); Globulin 3.2 gm/dL (2.2-3.7); Glomerular Filtration Rate 38; Glucose 352 mg/dL (70-105); Lactate Dehydrogenase 255 U/L (135-225); Phosphorous 1.3 mg/dL (2.5-4.5); Triglycerides 132 mg/dL (<150); Uric Acid 5.8 mg/dL (2.5-8.0)
[2023-03-16] MEDS ORDERED: POTASSIUM PHOSPHATE 40 MEQ in DEXTROSE 5% IN WATER 500 ML IV ONE (20:04)
[2023-03-16] MEDS ORDERED: MAGNESIUM SULFATE 2 GM/50 ML BAG IV ONE (20:05)
[2023-03-16] MEDS ORDERED: 0.9 % SODIUM CHLORIDE 1,000 ML IV SCH (20:15)
[2023-03-16] MEDS: DOCUSATE SODIUM 100 MG CAPSULE PO SCH (20:34)
[2023-03-16] MEDS: BUDESONIDE 0.5 MG/2 ML AMPUL.NEB NEB SCH (20:55)
[2023-03-16] MEDS ORDERED: BISMUTH SUBSALICYLATE 15 ML ORAL.SUSP PO ONE (21:04)
[2023-03-16] MEDS: CALCIUM CARBONATE 500 MG TAB.CHEW CHEWED PRN (21:39)
[2023-03-16] MEDS ORDERED: POTASSIUM PHOSPHATE 66 MEQ/15 ML VIAL IV ONE ×2 (21:41→22:43)
[2023-03-17] MEDS ORDERED: INSULIN REGULAR, HUMAN 1 UNIT/0.01 ML UNIT ONE ×4 (00:27→16:49)
[2023-03-17] MEDS: INSULIN REGULAR, HUMAN 50 UNIT in 0.9 % SODIUM CHLORIDE 99.5 ML IV SCH ×2 (00:32→14:36)
[2023-03-17] MEDS: DEXTROSE 5%-1/2NS 1,000 ML IV SCH ×3 (00:36→18:50)
[2023-03-17] MEDS: IPRATROPIUM/ALBUTEROL 3 ML AMPUL.NEB NEB SCH ×4 (01:10→18:52)
[2023-03-17] MEDS ORDERED: DEXTROSE 50% 50 ML SYRINGE IV ONE (05:09)
[2023-03-17] MEDS: methylPREDNISolone SOD SUCC 125 MG/2 ML VIAL IV SCH (05:29)
[2023-03-17 06:44] LABS: Basophils # (Auto) 0.01 K/mcL (0.00-0.30); Basophils % (Auto) 0.1 % (0.0-2.0); Eosinophils # (Auto) 0 K/mcL (0.00-0.70); Eosinophils % (Auto) 0 % (0.0-7.0); Hematocrit 29.8 % (40.1-51.0); Hemoglobin 8.8 g/dL (13.7-17.5); Lymphocytes # (Auto) 0.89 K/mcL (1.50-4.80); Lymphocytes % (Auto) 6.4 % (15.5-49.0); Mean Corpuscular HGB Conc 29.5 g/dL (31.0-36.0); Mean Platelet Volume 11.4 fL (8.8-12.5); Monocytes # (Auto) 0.64 K/mcL (0.10-0.90); Monocytes % (Auto) 4.6 % (1.0-12.0); Neutrophils % (Auto) 87.9 % (38.0-78.0); Platelet Count 209 K/mcL (140-440); RBC 3.24 M/mcL (4.63-6.08); Red Cell Distribution Width 15.9 % (11.5-14.5); WBC 13.8 K/mcL (4.5-11.0)
[2023-03-17] MEDS: OMEPRAZOLE 20 MG CAPSULE PO SCH (06:48)
[2023-03-17] MEDS: BUDESONIDE 0.5 MG/2 ML AMPUL.NEB NEB SCH ×2 (07:03→18:52)
[2023-03-17 07:04] LABS: ALT/SGPT 22 U/L (<40); AST/SGOT 33 U/L (<40); Albumin 3.7 gm/dL (3.2-5.2); Albumin/Globulin Ratio 1.1 (1.0-2.3); Alkaline Phosphatase 78 U/L (39-117); Bilirubin,Direct < 0.2 mg/dL (0-0.3); Bilirubin,Total 0.3 mg/dL (0.1-1.0); Blood Urea Nitrogen 28 mg/dL (8-23); Calcium 9.9 mg/dL (8.6-10.4); Carbon Dioxide 22 mmol/L (22-30); Chloride 101 mmol/L (96-108); Globulin 3.3 gm/dL (2.2-3.7); Glomerular Filtration Rate 41; Glucose 128 mg/dL (70-105); Lactate Dehydrogenase 289 U/L (135-225); Phosphorous 3.4 mg/dL (2.5-4.5); Triglycerides 81 mg/dL (<150); Uric Acid 5.9 mg/dL (2.5-8.0)
[2023-03-17] MEDS ORDERED: DEXTROSE 31 GM ORAL.SUSP PO PRN (08:25)
[2023-03-17] MEDS ORDERED: DEXTROSE 50% 50 ML VIAL IV PRN (08:25)
[2023-03-17] MEDS: amLODIPine 5 MG TABLET PO SCH (08:51)
[2023-03-17] MEDS: DOCUSATE SODIUM 100 MG CAPSULE PO SCH ×2 (08:51→20:11)
[2023-03-17] MEDS: ATENOLOL 50 MG TABLET PO SCH (08:52)
[2023-03-17] MEDS: ENOXAPARIN 40 MG/0.4 ML SYRINGE SQ SCH (08:52)
[2023-03-17] MEDS: AZITHROMYCIN 250 MG TABLET PO SCH (08:52)
[2023-03-17] MEDS: ATORVASTATIN 40 MG TABLET PO SCH (08:52)
[2023-03-17] MEDS ORDERED: INSULIN GLARGINE, HUMAN 1 UNIT/0.01 ML SQ SCH (09:00)
[2023-03-17] MEDS: CALCIUM CARBONATE 500 MG TAB.CHEW CHEWED PRN (09:41)
[2023-03-17] MEDS: INSULIN LISPRO 1 UNIT/0.01 ML UNIT SQ SCH ×6 (11:21→23:03)
[2023-03-17] MEDS ORDERED: INSULIN GLARGINE, HUMAN 1 UNIT/0.01 ML SQ ONE (13:51)
[2023-03-17] MEDS: methylPREDNISolone SOD SUCC 40 MG/ML VIAL IV SCH ×2 (14:54→22:06)
[2023-03-17] MEDS ORDERED: HALOPERIDOL LACTATE 5 MG/ML VIAL IV ONE (23:15)
[2023-03-17] MEDS ORDERED: LORazepam 2 MG/ML VIAL IV PRN ×2 (23:24→23:30)
[2023-03-17] MEDS: HALOPERIDOL LACTATE 5 MG/ML VIAL ONE ×2 (23:26→23:39)
[2023-03-17] MEDS ORDERED: LORazepam 2 MG/ML VIAL ONE (23:33)
[2023-03-17] MEDS: LORazepam 2 MG/ML VIAL IV PRN (23:35)
[2023-03-17] MEDS ORDERED: hydrOXYzine 25 MG TABLET PO PRN (23:53)
[2023-03-18] MEDS ORDERED: HALOPERIDOL LACTATE 5 MG/ML VIAL IV PRN (00:03)
[2023-03-18] MEDS: INSULIN LISPRO 1 UNIT/0.01 ML UNIT SQ SCH ×6 (00:12→20:02)
[2023-03-18] MEDS: IPRATROPIUM/ALBUTEROL 3 ML AMPUL.NEB NEB SCH ×4 (00:33→19:03)
[2023-03-18] MEDS ORDERED: LORazepam 2 MG/ML VIAL ONE (01:44)
[2023-03-18] MEDS: LORazepam 2 MG/ML VIAL IV PRN (01:47)
[2023-03-18] MEDS: BUDESONIDE 0.5 MG/2 ML AMPUL.NEB NEB SCH ×2 (07:03→19:02)
[2023-03-18] MEDS ORDERED: hydrOXYzine 25 MG TABLET PO PRN (07:45)
[2023-03-18 08:21] LABS: Basophils # (Auto) 0.02 K/mcL (0.00-0.30); Basophils % (Auto) 0.1 % (0.0-2.0); Eosinophils # (Auto) 0 K/mcL (0.00-0.70); Eosinophils % (Auto) 0 % (0.0-7.0); Hematocrit 31.4 % (40.1-51.0); Hemoglobin 9.6 g/dL (13.7-17.5); Lymphocytes # (Auto) 0.86 K/mcL (1.50-4.80); Lymphocytes % (Auto) 5.7 % (15.5-49.0); Mean Cell Volume 90.2 fL (80.0-100.0); Mean Corpuscular HGB Conc 30.6 g/dL (31.0-36.0); Mean Platelet Volume 11.3 fL (8.8-12.5); Monocytes # (Auto) 0.73 K/mcL (0.10-0.90); Monocytes % (Auto) 4.9 % (1.0-12.0); Neutrophils % (Auto) 87.4 % (38.0-78.0); Platelet Count 223 K/mcL (140-440); RBC 3.48 M/mcL (4.63-6.08); Red Cell Distribution Width 15.9 % (11.5-14.5)
[2023-03-18] MEDS ORDERED: DIAZEPAM 10 MG/2 ML SYRINGE IV PRN (08:26)
[2023-03-18 08:31] LABS: ALT/SGPT 69 U/L (<40); AST/SGOT 69 U/L (<40); Albumin 3.9 gm/dL (3.2-5.2); Albumin/Globulin Ratio 1.1 (1.0-2.3); Alkaline Phosphatase 94 U/L (39-117); Bilirubin,Direct < 0.2 mg/dL (0-0.3); Bilirubin,Total 0.3 mg/dL (0.1-1.0); Blood Urea Nitrogen 35 mg/dL (8-23); Calcium 9.7 mg/dL (8.6-10.4); Carbon Dioxide 24 mmol/L (22-30); Chloride 99 mmol/L (96-108); Globulin 3.4 gm/dL (2.2-3.7); Glomerular Filtration Rate 44; Glucose 159 mg/dL (70-105); Lactate Dehydrogenase 404 U/L (135-225); Phosphorous 3.9 mg/dL (2.5-4.5); Triglycerides 138 mg/dL (<150); Uric Acid 5.7 mg/dL (2.5-8.0)
[2023-03-18] MEDS ORDERED: INSULIN GLARGINE, HUMAN 1 UNIT/0.01 ML SQ SCH (09:00)
[2023-03-18] MEDS: ENOXAPARIN 40 MG/0.4 ML SYRINGE SQ SCH (09:43)
[2023-03-18] MEDS: OMEPRAZOLE 20 MG CAPSULE PO SCH (10:47)
[2023-03-18] MEDS: ATENOLOL 50 MG TABLET PO SCH (10:48)
[2023-03-18] MEDS: AZITHROMYCIN 250 MG TABLET PO SCH (10:48)
[2023-03-18] MEDS: amLODIPine 5 MG TABLET PO SCH (10:49)
[2023-03-18] MEDS: ATORVASTATIN 40 MG TABLET PO SCH (10:50)
[2023-03-18] MEDS: DOCUSATE SODIUM 100 MG CAPSULE PO SCH ×3 (10:51→21:56)
[2023-03-18] MEDS ORDERED: OLANZapine 5 MG TABLET PO PRN (15:49)
[2023-03-19] MEDS: INSULIN LISPRO 1 UNIT/0.01 ML UNIT SQ SCH ×4 (00:01→11:27)
[2023-03-19] MEDS: IPRATROPIUM/ALBUTEROL 3 ML AMPUL.NEB NEB SCH ×2 (00:59→07:25)
[2023-03-19 06:32] LABS: Basophils # (Auto) 0.02 K/mcL (0.00-0.30); Basophils % (Auto) 0.2 % (0.0-2.0); Eosinophils # (Auto) 0.01 K/mcL (0.00-0.70); Eosinophils % (Auto) 0.1 % (0.0-7.0); Hemoglobin 9.5 g/dL (13.7-17.5); Lymphocytes # (Auto) 1.76 K/mcL (1.50-4.80); Lymphocytes % (Auto) 17.7 % (15.5-49.0); Mean Cell Volume 93.8 fL (80.0-100.0); Mean Corpuscular HGB Conc 29.7 g/dL (31.0-36.0); Mean Platelet Volume 11.4 fL (8.8-12.5); Monocytes # (Auto) 0.89 K/mcL (0.10-0.90); Neutrophils % (Auto) 71.9 % (38.0-78.0); Platelet Count 190 K/mcL (140-440); RBC 3.41 M/mcL (4.63-6.08); Red Cell Distribution Width 15.9 % (11.5-14.5); WBC 9.9 K/mcL (4.5-11.0)
[2023-03-19] MEDS: BUDESONIDE 0.5 MG/2 ML AMPUL.NEB NEB SCH (07:25)
[2023-03-19] MEDS: OMEPRAZOLE 20 MG CAPSULE PO SCH (07:57)
[2023-03-19] MEDS ORDERED: predniSONE 20 MG TABLET PO SCH (08:00)
[2023-03-19] MEDS: ATENOLOL 50 MG TABLET PO SCH (08:28)
[2023-03-19] MEDS: AZITHROMYCIN 250 MG TABLET PO SCH (08:29)
[2023-03-19] MEDS: DOCUSATE SODIUM 100 MG CAPSULE PO SCH (08:30)
[2023-03-19] MEDS: ATORVASTATIN 40 MG TABLET PO SCH (08:30)
[2023-03-19] MEDS: amLODIPine 5 MG TABLET PO SCH (08:31)
[2023-03-19] MEDS: ENOXAPARIN 40 MG/0.4 ML SYRINGE SQ SCH (08:31)
[2023-03-19] MEDS ORDERED: INSULIN GLARGINE, HUMAN 1 UNIT/0.01 ML SQ SCH (09:00)
[2023-03-19] MEDS ORDERED: FUROSEMIDE 100 MG/10 ML VIAL IV ONE (09:09)
[2023-03-19 11:32] VITALS: TEMP 98.3
[2023-03-19 11:34] VITALS: O2SAT 90
== END 2023-03-19 12:12 | disposition home or self-care (01) | DRG 189 ==
LOC: ED 06:08 → ICU 12:27
PROVIDERS: ADMIT Internal Medicine; ATTEND Internal Medicine